=== PATIENT | female | born 1950 | race Caucasian/White ===

== ENCOUNTER 2020-03-17 18:38 | Emergency (ER) | payer MEDICARE, SELFPAY ==
--- NOTE | ~2020-03-17 | CT_ITS ---
EXAMINATION: CT abdomen pelvis w con DATE: 03/17/2020 20:11 INDICATION: Left lower quadrant abdominal pain TECHNIQUE: Computed tomography (CT) of the abdomen and pelvis was performed with 100 mL Omnipaque-350 intravenous contrast. Automated exposure control and iterative reconstruction technique were employe d. The dose-length product was 792.00 mGy-cm. COMPARISON: None FINDINGS: Lung bases are clear. Heart size is normal. No pericardial or pleural effusion. Liver, gallbladder, s pleen, pancreas and bilateral adrenal glands are normal. 2 mm nonobstructing stone at a lower pole ca lyx of the right kidney. There is a likely partially obstructing 3 mm stone at the left ureterovesicu lar junction with mild left hydroureteronephrosis. There is mild urothelial enhancement along the lef t kidney along with small amount of fluid along the anterior left pararenal space and left periureter al stranding which also raises concern for ascending urinary tract infection. There is however normal symmetric enhancement pattern of both kidneys with no suggestion of pyelonephritis. 4 mm low density left renal cyst. There is moderate colonic diverticulosis with a sigmoid predominance. There is no adjacent inflammatory change to suggest diverticulitis. Small bowel and appendix are normal. Bladder , anteverted uterus and bilateral adnexa are normal. No free intraperitoneal gas or fluid. No patholo gically enlarged abdominal or pelvic lymphadenopathy. Bilateral fat-containing inguinal hernias. Mild thoracolumbar spondylosis. IMPRESSION: 1. Bilateral nephrolithiasis with likely partially obstructing 3 mm stone at the left ureterovesicula r junction. Correlate with urinalysis to exclude associated urinary tract infection. 2. Diverticulosis. 3. Bilateral fat-containing inguinal hernias. Reviewed, dictated and finalized at location A. [employer] IMPRESSION: 1. Bilateral nephrolithiasis with likely partially obstructing 3 mm stone at th e left ureterovesicular junction. Correlate with urinalysis to exclude associat ed urinary tract infection. 2. Diverticulosis. 3. Bilateral fat-containing inguinal hernias.
[2020-03-17 18:51] VITALS: BP 136/66; PULSE 65; RESP 18; TEMP 35.8; O2SAT 98
[2020-03-17] MEDS: MORPHINE SULFATE (*CRX) 4 MG/ML INJ IV PUSH (19:25)
[2020-03-17] MEDS: ONDANSETRON INJ 4 MG/2 ML VIAL IV PUSH (19:25)
[2020-03-17] MEDS: SODIUM CHLORIDE 0.9% IV 1,000 ML 150 ML IV CONT (19:27)
[2020-03-17 19:34] LABS: Basophils Percent Auto 0.3 % (0.2-1.2); Eosinophils Absolute Auto 0.1 K/mm3 (0-0.3); Eosinophils Percent Auto 0.8 % (0-4.4); Hematocrit 41.6 % (37.0-47.0); Hemoglobin 14.3 g/dL (12.0-15.0); Immature Granulocyte Absolute 0.06 K/mm3 (0.00-0.031); Immature Granulocyte Percent A 0.7 % (0-0.5); Lymphocytes Absolute Auto 1.35 K/mm3 (0.9-3.2); Lymphocytes Percent Auto 14.8 % (18.3-44.2); Mean Corpuscular HGB Conc 34.4 g/dl (32-36); Mean Corpuscular Hemoglobin 30.4 pg (26-34); Mean Corpuscular Volume 88.5 fl (80-100); Mean Platelet Volume 8.8 fl (7.4-10.4); Monocytes Absolute Auto 0.5 K/mm3 (0.1-0.6); Monocytes Percent Auto 4.9 % (2.6-8.5); Neutrophils Absolute Auto 7.2 K/mm3 (1.3-6.7); Neutrophils Percent Auto 78.5 % (45.5-73.1); Platelet Count Result 198 k/mm3 (150-375); Red Cell Distribution Width 12.2 % (11.5-14.5); White Blood Count 9.1 K/mm3 (4.5-10.0)
[2020-03-17 19:47] LABS: Alanine Aminotransferase 21 U/L (4-35); Albumin Level 4.4 g/dL (3.5-5.1); Alkaline Phosphatase 91 U/L (38-126); Anion Gap 9 mmol/L (8-16); Aspartate Amino Transferase 26 U/L (14-36); Bilirubin,Total 0.8 mg/dL (0.2-1.3); Blood Urea Nitrogen 31 mg/dL (7-17); Calcium 9.4 mg/dL (8.4-10.2); Carbon Dioxide 29 mmol/L (22-30); Chloride 100 mmol/L (98-107); Estimated CRCL calculation 61 ml/min; Estimated Glomerular Filt Rate > 60; Glucose 142 mg/dL (65-105); Lipase 91 U/L (23-300); Potassium 3.9 mmol/L (3.4-5.0); Sodium 138 mmol/L (137-145)
[2020-03-17 20:18] LABS: Add Urine Microscopic? YES; Amorphous Sediment Urine Few; Appearance Urine Cloudy (Clear); Bacteria Urine Trace /hpf; Bilirubin Urine Negative (Negative); Blood Urine Negative (Negative); Color Urine Yellow (Yellow); Glucose Urine UA Negative (Negative); Ketones Urine Negative (Negative); Leukocyte Esterase Ur Negative LEU/UL (Negative); Mucus Urine Rare /lpf; Nitrate Urine Negative (Negative); Protein Urine Negative (Negative); Specific Grav Ur 1.014 (1.001-1.035); Squamous Epithelial Cell Urine Rare /hpf (Few); Urobilinogen Urine Negative mg/dL (<2.0); WBC Urine 0-3 /hpf
--- NOTE | 2020-03-17 20:42 | ED.ABDPAIN ---
HPI - Abdominal Pain General Chief Complaint: Abdominal Pain Stated Complaint: left abd pain/ vomting/dizzy Time Seen by Provider: 03/17/20 19:00 Source: patient and family Mode of arrival: ambulatory Limitations: no limitations History of Present Illness HPI narrative: 69-year-old with a remote history of kidney stones here with complaints of left lower abdominal pain started this afternoon. Patient states that the pain radiates from the left lower abdomen to her flank area. Pain is sharp shooting in nature. She denies any nausea or vomiting. No history of fever or chills. Denies any blood in the urine or in the stool. MD elicited complaint: abdominal pain Pertinent past history: kidney stones Onset (ago): hour(s) (6) Pain Consistency: constant Location: LLQ Severity: moderate Quality: stabbing Radiation: L flank Migration to: suprapubic Exacerbating factors: nothing Relieving factors: nothing Related Data Allergies Allergy/AdvReac Type Severity Reaction Status Date / Time No Known Allergies Allergy Verified 03/17/20 19:03 Review of Systems Review of Systems: All systems reviewed & are unremarkable except as noted in HPI and below Constitutional: Constitutional: Reports no additional constitutional complaints Eyes: Eyes: Reports no additional eye complaints ENT: Reports system reviewed and no additional complaints, except as documented Cardiovascular: Cardiovascular: Reports no additional cardiovascular complaints Respiratory: Respiratory: Reports no additional respiratory complaints Gastrointestinal: Gastrointestinal: Reports as per HPI Genitourinary: Genitourinary: Reports as per HPI Musculoskeletal: Musculoskeletal: Reports no additional musculoskeletal complaints Neurologic: Reports system reviewed and no additional complaints, except as documented PMFSH Family History Family History Mother Family history of Alzheimer's disease Family history of arthritis Father Hypertension Social History Social History Smoking status: Never smoker Second hand tobacco smoke exposure: No Alcohol intake: current Gender identity (if verbalized by the patient): Female Exam Narrative: Exam Narrative: GENERAL: Well-appearing, well-nourished, and in no acute distress. HEAD: Normocephalic, atraumatic. EYES: PERRLA and EOMI.. NECK: Supple. CHEST: Clear to auscultation. No respiratory distress. HEART: Regular rate and rhythm. No murmur heard. Normal peripheral pulses. ABDOMEN: Soft, Mild tenderness in the LLQ, nondistended, normal active bowel sounds. EXTREMITIES: Normal range of motion. No edema. SKIN: Warm, dry, no rash. NEURO: No focal deficits. Alert and oriented x3. PSYCH: Normal mood and affect. Course Course Emergency Course: Patient states the pain has much improved still has very minimal amount of pain I informed her about her lab work, CT findings will give her IV Toradol to make her feel comfortable. Advised to drink plenty of fluids take pain medication as prescribed. Vital Signs Vital signs: Vital Signs Temperature 35.8 C L 03/17/20 18:51 Pulse Rate 65 03/17/20 18:51 Respiratory Rate 18 03/17/20 18:51 Blood Pressure 136/66 03/17/20 18:51 Pulse Oximetry 98 03/17/20 18:51 Temperature 35.8 C L 03/17/20 18:51 Pulse Rate 65 03/17/20 18:51 Respiratory Rate 18 03/17/20 18:51 Blood Pressure 136/66 03/17/20 18:51 Pulse Oximetry 98 03/17/20 18:51 MDM - Abdominal Pain Lab Data Result diagrams: 03/17/20 19:24 03/17/20 19:24 Labs: Lab Results 03/17/20 03/17/20 03/17/20 Range/Units 19:24 19:24 19:24 WBC 9.1 (4.5-10.0) K/mm3 RBC 4.70 (4.2-5.4) M/mm3 Hgb 14.3 (12.0-15.0) g/dL Hct 41.6 (37.0-47.0) % MCV 88.5 (80-100) fl MCH 30.4 (26-34) pg MCHC 34.4 (32-36) g/dl RDW 12.2 (11.5
[2020-03-17] MEDS: KETOROLAC 30 MG/ML VIAL (*BKC) (20:45)
== END 2020-03-17 21:17 | disposition home or self-care (01) ==
PROVIDERS: Emergency Provider Family Medicine; PCP Family Medicine
DX: N20.2 Calculus of kidney with calculus of ureter (principal); K40.90 Unilateral inguinal hernia, without obstruction or gangrene, not specified as recurrent; K57.90 Diverticulosis of intestine, part unspecified, without perforation or abscess without bleeding
CPT/HCPCS: 36415; 74177; 80053; 81001; 83605; 83690; 85025; 96374; 96375; 99284; J1885; J2270; J2405; J7030; Q9967

== ENCOUNTER → 2022-04-18 14:55 | Outpatient (CLI) | payer MEDICARE, SELFPAY ==
--- NOTE | ~2022-04-18 | XR_ITS ---
EXAM: XR knee LT min 4V DATE: 04/18/2022 15:19 HISTORY: Bilateral primary osteoarthritis of knee . COMPARISON: None available. FINDINGS: Normal mineralization. No fracture or dislocation. No lytic or blastic lesion. Mild medial joint space narrowing. Mild tricompartmental osteophytosis. No erosion or periosteal change. Soft ti ssues within normal limits. IMPRESSION: Mild left knee osteoarthritis. Reviewed, dictated and finalized at location K. OTIC/PROSTHETIC PRACTITIONER
== END ==
PROVIDERS: PCP Family Medicine; Visit Provider Orthopaedic Surgery
DX: M17.0 Bilateral primary osteoarthritis of knee (principal)
CPT/HCPCS: 73564

== ENCOUNTER → 2022-06-07 09:07 | Outpatient (CLI) | payer MEDICARE, SELFPAY ==
--- NOTE | ~2022-06-07 | MR_ITS ---
MRI of the left knee Clinical history: Pain Technique: Coronal proton density and proton density-weighted images, sagittal proton-density and T2 fat-sat images, and axial proton-density fat-saturated images were acquired. COMPARISON: 06/27/2018 Findings: Anterior and posterior cruciate ligaments are intact. Medial collateral ligament and the la teral collateral ligament complex are intact. Popliteus tendon is intact. There is probable subtle vertical tear of the body segment of the medial meniscus. Questionable super imposed horizontal tear. No lateral meniscal tear seen. There is mild chondral thinning of the lateral compartment. Medial compartment articular cartilage is well preserved. Femoral trochlear cartilage is intact. There is focal high-grade chondromalacia at t he patellar apex. Extensor mechanism is intact. Small joint effusion present with minimal Conte's cyst. Impression: Subtle vertical tear of the body segment of the medial meniscus with questionable superimposed horizo ntal tear. Mild chondromalacia changes, as detailed above. Small joint effusion and minimal Conte's cyst. Reviewed, dictated and finalized at location M. TIC MAKER Impression: Subtle vertical tear of the body segment of the medial meniscus with questionab le superimposed horizontal tear. Mild chondromalacia changes, as detailed above. Small joint effusion and minimal Conte's cyst.
== END ==
PROVIDERS: PCP Family Medicine; Visit Provider Physician Assistant Surgical
DX: M25.462 Effusion, left knee (principal); M71.22 Synovial cyst of popliteal space [Baker], left knee; S83.242A Other tear of medial meniscus, current injury, left knee, initial encounter; X58.XXXA Exposure to other specified factors, initial encounter
CPT/HCPCS: 73721

== ENCOUNTER 2022-07-09 00:28 | Day surgery (SDC) | payer MEDICARE, SELFPAY ==
[2022-07-02 15:47] VITALS: BMI 31.0
--- NOTE | 2022-07-02 16:00 | PC.NURSE ---
Report to the Outpatient Waiting Room, entrance under the green pavilion located off [facility], at time __1:00PM on date __07/09/22 . Planned Procedure Time: _3:00PM . Time changes happen often and if your time is changed the preop area will call you the afternoon before. - You and your visitor will be asked to self-screen and do not enter if you have any COVID symptoms. - Only one visitor is requested with a max of two and NO children visitors are allowed at this time. - The patient visitor may be requested to leave or wait in car when not with patient due to distancing restrictions. - A mask is optional within the hospital at this time. Patients may have clear liquids (water, carbonated beverages, clear teas, apple juice) until 3 hours prior to surgery with a maximum of 20 ounces. - No food from midnight until time of surgery Take the following medications with a SIP of water the morning of surgery: ___FLOXETINE DO NOT STOP ANY OF YOUR OTHER PRESCRIPTION MEDICATIONS PRIOR TO SURGERY ?EXCEPT THE FOLLOWING Medications to discontinue per physician ____HOLD ALL NSAIDS(IBUPROFEN) 7 DAYS PRE-OP- LAST DOSE 07/02/22, HOLD ALL VITAMINS/SUPPLEMENTS 3 DAYS PRE-OP- LAST DOSE 07/05/22 Please no make-up, nail scottish, hairspray, perfume, deodorant, or body powder the day of surgery. No jewelry (including any body piercings) or valuables the day of surgery, leave them at home. Please take a shower or bath the night before, or the morning of, surgery with an antibacterial soap. Wear comfortable, loose fitting clothing. Children are encouraged to wear pajamas. - Jewelry must be removed prior to entering the operating room. Rings and piercings that are not removed may be cut off. - The hospital will not accept responsibility for valuables. - Please leave all valuables, including medications, at home the day of surgery. If you are going home after surgery, a licensed concrete truck driver must drive you home. - NO public transportation without another adult if you receive anesthesia. - We recommend that an adult stay with you for 24 hours following discharge. - We also recommend that you do not drive, make important decision, drink alcoholic beverages, or take any drugs that were not prescribed by your health care provider for at least 24 hours after your discharge time. Follow any additional instructions given to you from your surgeon. If you or anyone in your household have experienced Covid symptoms in the past week, please notify your surgeon or the nurse liaison at the phone number below for possible testing. Telephone instructions given to ___PATIENT and asked if any additional questions and then verbalized understanding. Patient advised to call surgeon office or pre surgery nurse liaison [phone] if any additional questions.
--- NOTE | 2022-07-09 09:07 | WPDANESEPPF ---
Anes - Initial Pre Proc Eval Procedure: Operation Date: 07/09/22 15:00 Proposed Procedures p Left Knee Arthroscopic Partial Medial Meniscectomy - Reji Khalil MD <Brett Angel DO - Last Filed: 07/23/22 08:26> Date/Time: 07/09/22 09:07 <Brett Angel DO - Last Filed: 07/23/22 08:26> Surgeon: Reji Khalil MD <Brett Angel, DO - Last Filed: 07/23/22 08:26> Pre Op Diagnosis: left medial meniscus tear <Brett Angel DO - Last Filed: 07/23/22 08:26> Patient Data Age: 72 Gender: F Height: 1.63 m Weight: 82 kg <Brett Angel DO - Last Filed: 07/23/22 08:26> Allergies Allergy/AdvReac Type Severity Reaction Status Date / Time No Known Allergies Allergy Verified 07/09/22 13:25 <Brett Angel DO - Last Filed: 07/23/22 08:26> Home Medications Medication Instructions Recorded Confirmed Type pantoprazole 40 mg tablet,delayed 40 mg PO DAILY PRN acid reflux #90 02/27/22 07/09/22 Rx release tabs cholecalciferol (vitamin D3) 125 125 mcg PO DAILY 07/02/22 07/09/22 History mcg (5,000 unit) capsule fluoxetine 10 mg capsule 10 mg PO QAM 07/02/22 07/09/22 History ibuprofen 200 mg capsule 600 mg PO Q6H PRN Pain 07/02/22 07/09/22 History xhfmjameywyf-Oa-vpfu-minerals 2 tablet PO DAILY 07/02/22 07/09/22 History aspirin 81 mg tablet,delayed 81 mg PO BID 14 days #28 tabs 07/09/22 Rx release hydrocodone 5 mg-acetaminophen 325 1 - 2 tablet PO Q4-6H PRN pain #30 07/09/22 Rx mg tablet tabs <Brett Angel DO - Last Filed: 07/23/22 08:26> Patient hx anesthesia problems: none <Jonathan Prince MD - Last Filed: 07/09/22 13:45> Family hx anesthesia problems: none <Jonathan Prince MD - Last Filed: 07/09/22 13:45> Results Review: All pre-operative results and documents have been reviewed as part of the pre-operative evaluation. <Brett Angel DO - Last Filed: 07/23/22 08:26> [facility] Past Medical History Medical History: Medical History (Updated 07/09/22 @ 14:31 by TEODORO Berrios) Anxiety Depression GERD (gastroesophageal reflux disease) Kidney stone Obesity (BMI 30.0-34.9) <Brett Angel DO - Last Filed: 07/23/22 08:26> Surgical History Surgical History: Surgical History (Updated 07/18/22 @ 15:58 by Gabby Price MA) History of History of left knee surgery (~07/09/22) Arthroscopic partial medial meniscectomy, left knee. <Brett Angel DO - Last Filed: 07/23/22 08:26> Family History Family History: Family History Mother Family history of Alzheimer's disease Family history of arthritis Father Hypertension <Brett Angel DO - Last Filed: 07/23/22 08:26> Social History Social History: Social History Social History: Caffeine-occasionally Smoking status: Never smoker Second hand tobacco smoke exposure: No Alcohol intake: current Alcohol use details: occasionally Substance use: never Lack of Transportation: No Lack of Food: Never True Current Housing: I Have Housing Concerned About Future Housing: No Difficulty Paying Gas/Electric Bills: No Difficulty Paying for Meds: No Currently Unemployed: No Education: Master's Degree or Higher Difficulty w/ Childcare or Family Care: No Living arrangements: with family Additional living arrangements comments: HUSB Gender identity (if verbalized by the patient): Female Spiritual care concerns: No <Brett Angel DO - Last Filed: 07/23/22 08:26> Anes - Eval Final PreProcedure Day of Procedure 07/09/22 09:07 <Brett Angel DO - Last Filed: 07/23/22 08:26> Patient weight: obese <Brett Angel DO - Last Filed: 07/23/22 08:26> Heart: regular rate and
[2022-07-09] MEDS: ACETAMINOPHEN 500 MG TABLET 1000 MG PO (13:44)
[2022-07-09] MEDS: LACTATED RINGERS 1,000 ML 30 ML IV CONT ×2 (14:00→15:57)
[2022-07-09 14:03] VITALS: BP 148/71; PULSE 72; RESP 16; TEMP 36.9; O2SAT 98
--- NOTE | 2022-07-09 14:29 | WPDHPUPDATE1 ---
History and Physical Update Update Date/Time: 07/09/22 14:29 History and Physical has been reviewed, including an updated exam of the patient. There are NO changes in the patient's condition. Risks, benefits, and alternatives have been discussed and questions answered. Patient agrees to proceed with procedure.
[2022-07-09] MEDS: KETOROLAC 15 MG/ML VIAL (*BKC) IV PUSH (14:44)
[2022-07-09] MEDS: ceFAZolin 2 GM/D5W 50 ML 2 GM/50 ML BAG IVPB (14:50)
[2022-07-09] MEDS: BUPIVACAINE/EPINEPHRINE 0.25% 50 ML VIAL 30 ML INFILTRATE (15:09)
[2022-07-09 15:39] VITALS: BP 144/73; PULSE 74; RESP 18; TEMP 36.6; O2SAT 99
[2022-07-09 15:54] VITALS: BP 119/52; PULSE 87; RESP 15; O2SAT 100
--- NOTE | 2022-07-09 16:00 | P.OP_ITS ---
Procedure Note - Detailed Date of Procedure 07/09/22 Pre-op Diagnosis Left knee medial meniscus tear Post-op Diagnosis Same Procedure Performed Arthroscopic partial medial meniscectomy, left knee. Surgeon Reji Khalil MD Anesthesia General Findings Significant complex radial split tear with horizontal cleavage component posteriorly at the medial meniscus. Findings consistent with the MRI. Grade 2 chondromalacia on the medial femur and a small area of grade 3/4 chondromalacia on the weight-bearing lateral tibia. Patella grade 2 and trochlea grade 1. Description of Procedure The patient was identified and the surgical site confirmed and signed in the preoperative holding area. Antibiotics were started per protocol. She was brought to the operative room and transferred to the OR table. A general anesthetic was administered. Supine position with the operative lower extremity position in the leg wyatt after placement of a well padded tourniquet. The leg support was lowered and the contralateral limb was supported with a soft bolster. The knee was prepped and draped in the usual sterile fashion. A time- out was performed. The portal sites were marked and infiltrated with 0.5% Marcaine 20 mL. The limb was exsanguinated and the tourniquet inflated to 300 mL Hg. Standard inferolateral and inferomedial portals were established. Inflow was obtained with the saline pump. The camera was introduced. Diagnostic inspection of the joint was accomplished. The meniscus was debrided with the arthroscopic shaver and punches until stable. The radiofrequency probe was also used for further d?bridement. The arthroscopic instruments were removed. The tourniquet released and wounds closed with subcutaneous 4-0 Monocryl absorbable suture. Steri strips and a sterile dressing were applied. A light elastic wrap was placed. The patient was extubated and brought to the recovery room in stable condition. Estimated Blood Loss 5 Tourniquet Time 20 Drains No Complications No immediate complications Condition Stable Disposition PACU [facility] Billing Surgery - Charge Forward: Surgery Billing
[2022-07-09 16:08] VITALS: BP 117/66; PULSE 93; RESP 14; O2SAT 98
[2022-07-09 16:20] VITALS: BP 159/60; PULSE 91
[2022-07-09 16:45] VITALS: BP 155/61; PULSE 70
== END 2022-07-09 17:00 | disposition home or self-care (01) ==
PROVIDERS: PCP Family Medicine; Visit Provider Orthopaedic Surgery
PROC: (CPT 29870; principal; 2022-07-09 15:00)
DX: M23.332 Other meniscus derangements, other medial meniscus, left knee (principal); M94.262 Chondromalacia, left knee; K21.9 Gastro-esophageal reflux disease without esophagitis; F41.9 Anxiety disorder, unspecified; F32.A Depression, unspecified; E66.9 Obesity, unspecified; Z68.34 Body mass index [BMI] 34.0-34.9, adult
CPT/HCPCS: 29881; A9270; J0690; J1100; J1885; J2250; J2405; J2704; J3010; J7120

== ENCOUNTER → 2022-11-29 11:30 | Outpatient (CLI) | payer MEDICARE, SELFPAY ==
--- NOTE | ~2022-11-29 | MR_ITS ---
EXAMINATION: MR knee LT wo con DATE: 11/29/2022 12:16 INDICATION: Left knee pain. TECHNIQUE: Magnetic resonance imaging (MRI) of the left knee was performed without intravenous contra st. Sequences included axial PD-weighted FS FSE, coronal PD-weighted FSE and PD-weighted FS FSE, sagi ttal PD-weighted FSE, and sagittal T2-weighted FS FSE. COMPARISON: Left knee MRI 06/07/2022, radiographs 04/18/2022 FINDINGS: Medial compartment: There is a complex tear of body and posterior horn of medial meniscus. There is shallow partial-thick ness cartilage loss of tibial condyle and femoral condyle. There is deep partial thickness cartilage loss of tibial condyle involving the central articular surface. Osteophytes are noted. Lateral compartment: Lateral meniscus is discoid. There is cartilage surface irregularity of tibial condyle and femoral co ndyle. Patellofemoral compartment: There is deep partial thickness cartilage loss of patellar medial facet with cortical irregularity an d mild subchondral edema-like marrow signal intensity. There is shallow partial-thickness cartilage l oss of trochlea. Ligaments and tendons: The anterior and posterior cruciate ligaments are normal. There is a sprain of medial collateral liga ment characterized increased signal intensity and surrounding edema. Lateral collateral ligament comp enzo is normal. There is mild patellar tendinopathy. Fluid: There is a small knee joint effusion. There is a moderate-sized Conte's cyst. There is mild prepatell ar and superficial infrapatellar bursitis. IMPRESSION: 1. Moderate chondrosis of medial and patellofemoral compartments and mild chondrosis of lateral tim rtment. 2. Tear of medial meniscus. 3. Grade 2 sprain of medial collateral ligament. 4. Small knee joint effusion. 5. Moderate-sized Conte's cyst. Reviewed, dictated and finalized at location A. IMPRESSION: 1. Moderate chondrosis of medial and patellofemoral compartments and mild chond rosis of lateral compartment. 2. Tear of medial meniscus. 3. Grade 2 sprain of medial collateral ligament. 4. Small knee joint effusion. 5. Moderate-sized Conte's cyst.
== END ==
PROVIDERS: PCP Family Medicine; Visit Provider Nurse Practitioner Family
DX: M71.22 Synovial cyst of popliteal space [Baker], left knee (principal); S83.242A Other tear of medial meniscus, current injury, left knee, initial encounter; M25.462 Effusion, left knee
CPT/HCPCS: 73721

== ENCOUNTER 2023-01-25 11:21 | Outpatient (CLI) | payer MEDICARE, SELFPAY ==
[2023-01-25 19:41] LABS: Basophils Absolute Auto 0.1 K/mm3 (0.0-0.1); Basophils Percent Auto 0.9 % (0.2-1.2); Eosinophils Absolute Auto 0.1 K/mm3 (0-0.3); Eosinophils Percent Auto 1.9 % (0-4.4); Hematocrit 42.3 % (37.0-47.0); Hemoglobin 14.1 g/dL (12.0-15.0); Immature Granulocyte Absolute 0.04 K/mm3 (0.00-0.031); Immature Granulocyte Percent A 0.7 % (0-0.5); Lymphocytes Absolute Auto 1.89 K/mm3 (0.9-3.2); Mean Corpuscular HGB Conc 33.3 g/dl (32-36); Mean Corpuscular Hemoglobin 30.9 pg (26-34); Mean Corpuscular Volume 92.6 fl (80-100); Mean Platelet Volume 9.1 fl (7.4-10.4); Monocytes Absolute Auto 0.4 K/mm3 (0.1-0.6); Monocytes Percent Auto 6.8 % (2.6-8.5); Neutrophils Absolute Auto 3.3 K/mm3 (1.3-6.7); Neutrophils Percent Auto 56.7 % (45.5-73.1); Platelet Count Result 206 k/mm3 (150-375); Red Blood Count 4.57 M/mm3 (4.2-5.4); Red Cell Distribution Width 12.2 % (11.5-14.5); White Blood Count 5.7 K/mm3 (4.5-10.0)
[2023-01-25 20:01] LABS: Anion Gap 4 mmol/L (8-16); Blood Urea Nitrogen 17 mg/dL (7-17); Calcium 8.7 mg/dL (8.4-10.2); Carbon Dioxide 32 mmol/L (22-30); Chloride 101 mmol/L (98-107); Cholesterol 225 mg/dL (0-200); Estimated Glomerular Filt Rate > 60; Glucose 226 mg/dL (65-110); HDL Direct 47 mg/dL; Potassium 4.2 mmol/L (3.4-5.0); Sodium 137 mmol/L (137-145); Triglycerides 142 mg/dL (<150)
[2023-01-25 20:18] LABS: LDL Cholesterol Direct 139 mg/dL
[2023-01-25 20:32] LABS: Hemoglobin A1C 7.5 % (<5.7)
[2023-01-25 20:39] LABS: Vitamin D 25 Hydroxy > 126.0 ng/mL
[2023-01-25 21:00] LABS: Hepatitis C Virus Antibody Negative (Negative)
== END 2023-01-25 11:22 | disposition home or self-care (01) ==
PROVIDERS: PCP Family Medicine; Visit Provider Nurse Practitioner Family
DX: E55.9 Vitamin D deficiency, unspecified (principal); E66.9 Obesity, unspecified; M17.0 Bilateral primary osteoarthritis of knee; R73.01 Impaired fasting glucose
CPT/HCPCS: 36415; 80048; 80061; 82306; 83036; 84443; 85025; 86803

== ENCOUNTER 2023-04-24 13:09 | Outpatient (CLI) | payer MEDICARE, SELFPAY ==
[2023-04-24 19:27] LABS: Cholesterol 133 mg/dL (0-200); HDL Direct 41 mg/dL; Triglycerides 117 mg/dL (<150)
[2023-04-24 19:38] LABS: LDL Cholesterol Direct 68 mg/dL
[2023-04-24 19:52] LABS: Hemoglobin A1C 7.7 % (<5.7)
== END 2023-04-24 13:10 | disposition home or self-care (01) ==
LOC: ANHGOSHLAB 13:12
PROVIDERS: PCP Family Medicine; Visit Provider Nurse Practitioner Family
DX: E78.5 Hyperlipidemia, unspecified (principal); E11.9 Type 2 diabetes mellitus without complications
CPT/HCPCS: 36415; 80061; 83036

== ENCOUNTER 2023-08-20 13:13 | Outpatient (CLI) | payer MEDICARE, SELFPAY ==
[2023-08-20 19:46] LABS: Creatinine Urine 173.5 mg/dL
[2023-08-20 19:51] LABS: MALB Creatinine Ratio 6.7 mg/g (0-30); Microalbumin Urine Random 11.7 mg/L (0-16.7)
[2023-08-20 20:04] LABS: Alanine Aminotransferase 25 U/L (6-35); Albumin Level 4.4 g/dL (3.5-5.1); Alkaline Phosphatase 99 U/L (38-126); Anion Gap 7 mmol/L (4-12); Aspartate Amino Transferase 42 U/L (14-36); Blood Urea Nitrogen 19 mg/dL (7-17); Calcium 9.1 mg/dL (8.4-10.2); Carbon Dioxide 28 mmol/L (22-30); Chloride 101 mmol/L (98-107); Estimated Glomerular Filt Rate > 60; Glucose 122 mg/dL (65-110); Potassium 3.7 mmol/L (3.4-5.0); Sodium 136 mmol/L (137-145)
== END 2023-08-20 13:14 | disposition home or self-care (01) ==
PROVIDERS: PCP Family Medicine; Visit Provider Nurse Practitioner Family
DX: E11.69 Type 2 diabetes mellitus with other specified complication (principal); E66.9 Obesity, unspecified
CPT/HCPCS: 36415; 80053; 82043; 83036

== ENCOUNTER 2024-02-21 13:07 | Outpatient (CLI) | payer MEDICARE, SELFPAY ==
[2024-02-21 15:28] LABS: Creatinine Urine 115.5 mg/dL
[2024-02-21 15:33] LABS: MALB Creatinine Ratio 15.3 mg/g (0-30); Microalbumin Urine Random 17.7 mg/L (0-16.7)
[2024-02-21 15:34] LABS: Alanine Aminotransferase 23 U/L (6-35); Albumin Level 4.2 g/dL (3.5-5.1); Alkaline Phosphatase 86 U/L (38-126); Anion Gap 4 mmol/L (4-12); Aspartate Amino Transferase 37 U/L (14-36); Bilirubin,Total 1.2 mg/dL (0.2-1.3); Blood Urea Nitrogen 29 mg/dL (7-17); Carbon Dioxide 30 mmol/L (22-30); Chloride 103 mmol/L (98-107); Cholesterol 129 mg/dL (0-200); Estimated Glomerular Filt Rate > 60; Glucose 133 mg/dL (65-110); HDL Direct 49 mg/dL; Sodium 137 mmol/L (137-145); Triglycerides 95 mg/dL (<150)
[2024-02-21 15:54] LABS: LDL Cholesterol Direct 54 mg/dL
[2024-02-21 17:26] LABS: Hemoglobin A1C 6.5 % (<5.7)
== END 2024-02-21 13:08 | disposition home or self-care (01) ==
LOC: ANHGOSHLAB 13:08
PROVIDERS: PCP Family Medicine; Visit Provider Family Medicine
DX: E11.9 Type 2 diabetes mellitus without complications (principal)
CPT/HCPCS: 36415; 80053; 80061; 82043; 83036

== ENCOUNTER 2024-04-11 18:25 | Emergency (ER) | payer MEDICARE, SELFPAY ==
--- NOTE | ~2024-04-11 | CT_ITS ---
CT abdomen pelvis w con Ordering provider: Edward Moreira PA-C History: 73 years Female with . RLQ pain . Comparison: None. Technique: CT abdomen and pelvis with IV and without oral contrast. Automated exposure control and it erative reconstruction technique were employed. The dose-length product was 720.60 mGy-cm. 100 mL Omn ipaque 350 was given IV. Findings: VISUALIZED LOWER CHEST: Normal. UPPER ABDOMINAL ORGANS: Liver: Normal. Gallbladder: Normal. Spleen: Normal. Stomach/duodenum: Normal. Pancreas: Normal. Adrenals: Normal. Kidneys: Stone in the right pelviureteric junction is seen measuring 8 mm. Right moderate hydronephro tic changes noted. Tiny cysts in the left kidney midpole. PELVIC ORGANS: The bladder is underfilled with slightly thickened wall. Evaluation for cystitis advis ed. Uterus: Normal. BOWEL AND MESENTERY: Colon: Area of narrowing in the rectosigmoid is seen. This may be spastic but follow-up advised. No e vidence of diverticulitis. Fecal material is loaded in the colon. Normal appendix. Small Bowel: Normal. No obstruction. Peritoneum/mesentery: No free air or free fluid. No mesenteric lymphadenopathy. RETROPERITONEUM: Mild atheromatous disease of the abdominal aorta. No retroperitoneal lymphadenopat hy. MUSCULOSKELETAL: Superficial soft tissues: The superficial soft tissues are normal. Bones: Age appropriate degenerative changes of the spine. IMPRESSION: 1. Stone in the right upper ureter with right hydronephrotic changes. 2. Constipation. 3. Area of narrowing in the rectosigmoid. Follow-up advised. Reviewed, dictated and finalized at location A. CAL ASSISTANT INSTRUCTOR
--- NOTE | ~2024-04-11 | XR_ITS ---
EXAMINATION: XR abdomen/kub 1V DATE: 04/11/2024 22:56 INDICATION: Right ureteral stone TECHNIQUE: A supine view of the abdomen on 2 radiographs was obtained. COMPARISON: CT dated 04/11/2024 at 7:56 PM FINDINGS: There is excreted contrast material in the bilateral renal collecting systems and in the bladder from the earlier contrast-enhanced CT. There is persistent mild right hydronephrosis with focal bulging c ontour at the ureteropelvic junction corresponding to the 1 cm obstructing stone identified on the pr ior CT. No left-sided hydronephrosis. Normal bowel gas pattern with moderate amount of scattered colo kojo stool. IMPRESSION: 1. Unchanged obstructing stone at the right ureteropelvic junction with mild right hydronephrosis. Reviewed, dictated and finalized at location A. AS CUTTER MACHINE IMPRESSION: 1. Unchanged obstructing stone at the right ureteropelvic junction with mild ri ght hydronephrosis.
[2024-04-11 18:28] VITALS: BP 174/84; PULSE 73; RESP 16; TEMP 36.9; O2SAT 100
--- NOTE | 2024-04-11 18:49 | ED.ABDPAIN ---
HPI - Abdominal Pain General Chief Complaint: Abdominal Pain Stated Complaint: ABD PAIN Time Seen by Provider: 04/11/24 18:34 Source: patient Mode of arrival: ambulatory Limitations: no limitations History of Present Illness HPI narrative: This is a 73-year-old female who presents to the ED via EMS for chief complaint of abdominal pain that started around 1700. Patient states that she started having some sweats and felt nauseous. She tried to eat some chicken at dinner. States that she then started to have intense right lower quadrant abdominal pain. States it radiated from right upper quadrant to right lower. States that the pain backed off a little bit but then came back again so they called EMS. The patient reports that she did have episode of vomiting prior to arrival as well. She received Zofran en route and feels this did help. Denies recent fevers, chills, urinary symptoms, chest pain, shortness of breath, cough. Related Data Home Medications ?Medication ?Instructions ?Recorded ?Confirmed ?Last Taken ?Type cholecalciferol (vitamin D3) 125 125 mcg PO DAILY 07/02/22 05/01/23 07/05/22 History mcg (5,000 unit) capsule gjaeeakepddp-Wn-qiey-minerals 2 tablet PO DAILY 07/02/22 05/01/23 07/05/22 History Allergies Allergy/AdvReac Type Severity Reaction Status Date / Time No Known Allergies Allergy Verified 02/24/24 11:35 Review of Systems Review of Systems: All systems as dictated in HPI FORMERLY [facility], [facility] Past Medical History Medical History Anxiety Depression GERD (gastroesophageal reflux disease) Kidney stone Obesity (BMI 30.0-34.9) Surgical History Surgical History History of History of left knee surgery (~07/09/22) Arthroscopic partial medial meniscectomy, left knee. Family History Family History Mother Family history of Alzheimer's disease Family history of arthritis Father Hypertension Social History Social History Social History: Caffeine-occasionally Smoking status: Never smoker Second hand tobacco smoke exposure: No Alcohol intake: current Alcohol use details: occasionally Substance use: never Substance use type: does not use Do You Feel Safe in your Home?: Yes Lack of Transportation: YES Lack of Food: Never True Current Housing: I Have Housing Concerned About Future Housing: No Difficulty Paying Gas/Electric Bills: No Difficulty Paying for Meds: No Currently Unemployed: No Education: Master's Degree or Higher Difficulty w/ Childcare or Family Care: No Living arrangements: with family Additional living arrangements comments: HUSB Gender identity (if verbalized by the patient): Female Spiritual care concerns: No Exam Narrative: GENERAL: Well-appearing, well-nourished, and in no acute distress. HEAD: Normocephalic, atraumatic. EYES: PERRLA and EOMI. ENT: Nares clear, no rhinorrhea or epistaxis. Mucous membranes moist. Oropharynx without tonsillar hypertrophy exudate or other lesions. NECK: Supple. No adenopathy or masses. CHEST: No respiratory distress. Clear to auscultation. No wheezes rales or rhonchi HEART: Regular rate and rhythm. No murmur heard. Normal peripheral pulses. ABDOMEN: Mild right lower quadrant tenderness. Soft, otherwise nontender, nondistended, normal active bowel sounds. Negative flank tenderness bilaterally. MSK: Normal range of motion. No edema. SKIN: Warm, dry, no rash. NEURO: Alert and oriented x4. No focal deficits. PSYCH: Normal mood and affect. Course Reevaluation(s) Reevaluation #1: Patient is feeling much improved after 1 round of Dilaudid. Updated her that she has an 8 mm stone on the right side. Date: 04/11/24 Time: 21:38 Consultations Consultation #1: Spoke with Dr. Ricketts (Urology): Recommends getting a KUB and is fine with patient being discharged with symptoms under control. They will follow-up with patient on Saturday. Date: 04/11/24 Time: 22:45 Vital Signs Vital signs: Vital Signs Temperature 98.4 F 04/11/24 18:28 Pulse Rate 73 04/11/24 18:28 Respiratory Rate 16 04/11/24 18:28 Blood Pressure 174/84 H 04/11/24 18:28 Pulse Oximetry 100 04/11/24 18:28 Temperature 98.2 F 04/11/24 23:16 Pulse Rate 72 04/11/24 23:16 Respiratory Rate 16 04/11/24 23:16 Blood Pressure 138/86 04/11/24 23:16 Pulse Oximetry 99 04/11/24 23:16 MDM - Abdominal Pain MDM Narrative Medical decision making narrative: This is a 73-year-old female who presents to the ED for chief complaint of right abdominal pain. Vitals are normal. Exam shows right flank tenderness. Lab work is unremarkable. Urinalysis shows evidence of blood but no UTI. CT abdomen pelvis with IV contrast shows right proximal ureteral stone that is about 8 mm with hydronephrosis. The patient is feeling much improved after 1 round of Dilaudid. She is feeling ready to go home. I discussed the case with Urology who was comfortable with her going home. She was given [place] for breakthrough pain. Urine strainer was sent home. Urology was scheduled for lithotripsy. Patient will be discharged in stable condition. Supportive measures discussed and return precautions given. Patient is understanding and agreeable with plan for discharge with Urology follow-up. Lab Data 04/11/24 19:17 04/11/24 19:17 Labs: Lab Results 04/11/24 04/11/24 Range/Units 19:17 21:44 WBC 9.0 (4.5-10.0) K/mm3 RBC 4.84 (4.2-5.4) M/mm3 Hgb 14.6 (12.0-15.0) g/dL Hct 42.9 (37.0-47.0) % MCV 88.6 (80-100) fl MCH 30.2 (26-34) pg MCHC 34.0 (32-36) g/dl RDW 12.6 (11.5-14.5) % Plt Count 201 (150-375) k/mm3 MPV 8.9 (7.4-10.4) fl Immature Gran % (Auto) 0.8 H (0-0.5) % Neut % (Auto) 81.1 H (45.5-73.1) % Lymph % (Auto) 12.8 L (18.3-44.2) % [place] % (Auto) 4.1 (2.6-8.5) % Eos % (Auto) 0.6 (0-4.4) % Baso % (Auto) 0.6 (0.2-1.2) % Lymph # (Auto) 1.16 (0.9-3.2) K/mm3 [place] # (Auto) 0.4 (0.1-0.6) K/mm3 Eos # (Auto) 0.1 (0-0.3) K/mm3 Baso # (Auto) 0.1 (0.0-0.1) K/mm3 Abs Immat Gran (auto) 0.07 H (0.00-0.031) K/mm3 Absolute Neuts (auto) 7.3 H (1.3-6.7) K/mm3 Absolute Nucleated RBC 0.000 (0.0-0.012) K/mm3 Nucleated RBC % 0.0 (0.0-0.2) % Sodium 139 (137-145) mmol/L Potassium 4.2 (3.4-5.0) mmol/L Chloride 106 (98-107) mmol/L Carbon Dioxide 29 (22-30) mmol/L Anion Gap 4 (4-12) mmol/L BUN 22 H (7-17) mg/dL Creatinine 0.80 (0.7-1.0) mg/dL Estim Creat Clear Calc 59 ml/min Estimated GFR > 60 (59 - ) Glucose 143 H (65-110) mg/dL Lactic Acid 1.2 (0.7-2.0) mmol/L Calcium 9.7 (8.4-10.2) mg/dL Total Bilirubin 0.9 (0.2-1.3) mg/dL AST 27 (14-36) U/L ALT 20 (6-35) U/L Alkaline Phosphatase 130 H (38-126) U/L Total Protein 7.0 (6.3-8.2) g/dL Albumin 4.5 (3.5-5.1) g/dL Lipase 141 (23-300) U/L Urine Color Yellow (Yellow) Urine Appearance Clear (Clear) Urine pH 7.0 (5.0-9.0) Ur Specific [place] 1.015 (1.001-1.035) Urine Protein Negative (Negative) mg/dL Urine Glucose (UA) Negative (Negative) mg/dL Urine Ketones Negative (Negative) mg/dL Ur Blood (Man) 2+ H (Negative) Urine Nitrate Negative (Negative) Urine Bilirubin Negative (Negative) Urine Urobilinogen 1.0 (<2.0) mg/dL Leukocyte Esterase Rfl Negative (Negative) GILES/UL Urine RBC 11-20 H (0-2) /hpf Urine WBC 4-6 H (0-3) /hpf Imaging Data Radiologist's impression: ITS Impressions Abdomen/Pelvis CT 04/11/24 20:24 IMPRESSION: 1. Stone in the right upper ureter with right hydronephrotic changes. 2. Constipation. 3. Area of narrowing in the rectosigmoid. Follow-up advised. Discharge Plan Discharge Clinical Impression: Calculus of right ureter Patient Disposition: Home, Self-Care Condition: Stable Instructions: Antibiotic Form Additional Instructions: Your exam today does show ureteral stone on the right side. Please follow-up with urology on this issue. Take Tylenol and ibuprofen every 4-6 hours for pain control. [place] for breakthrough pain. Use Zofran for nausea. Flomax prescribed as well to help urinate this stone. If you have any new or worsening symptoms please return to the ER for further evaluation. Patient Language: Portuguese Prescriptions: New tamsulosin [Flomax] 0.4 mg capsule 0.4 mg PO DAILY Qty: 10 0RF ondansetron 4 mg tablet,disintegrating 4 mg PO Q8H PRN (Reason: nausea and vomiting) Qty: 10 0RF hydrocodone-acetaminophen 5-325 mg tablet 1 tablet PO Q8H PRN (Reason: pain) Qty: 14 0RF No Action Synjardy XR 10-1,000 mg tablet, IR - ER, biphasic 24hr 1 tablet PO QAM Qty: 90 3RF cholecalciferol (vitamin D3) 125 mcg (5,000 unit) Capsule 125 mcg PO DAILY tucgkspyfqgu-Bb-yksq-minerals Tablet 2 tablet PO DAILY pantoprazole 40 mg tablet,delayed release (DR/EC) 40 mg PO DAILY PRN (Reason: acid reflux) Qty: 90 0RF Synjardy 5-500 mg tablet 1 tablet PO BID Qty: 180 1RF Rx Instructions: take with meals fluoxetine 10 mg capsule 10 mg PO QAM Qty: 90 1RF atorvastatin 40 mg tablet See Rx Instructions .ROUTE .COMPLEX Qty: 90 1RF Dose Instruction: 40 MG ORALLY DAILY Rx Instructions: 40 MG ORALLY DAILY Follow-up/Referrals: Joe Rai MD [Primary Care Provider] - Demetrius Ricketts MD [Physician] - Time of Disposition: 22:58
[2024-04-11] MEDS: HYDROmorphone HCL INJ (*CRX) 1 MG/ML SYR 0.5 MG IV PUSH (18:50)
--- NOTE | 2024-04-11 18:51 | PC.NURSE ---
last oral intake : some diet mountain dew, water, and chicken and dumplins around 1700 today
[2024-04-11 19:25] LABS: Basophils Absolute Auto 0.1 K/mm3 (0.0-0.1); Basophils Percent Auto 0.6 % (0.2-1.2); Eosinophils Absolute Auto 0.1 K/mm3 (0-0.3); Eosinophils Percent Auto 0.6 % (0-4.4); Hematocrit 42.9 % (37.0-47.0); Hemoglobin 14.6 g/dL (12.0-15.0); Immature Granulocyte Absolute 0.07 K/mm3 (0.00-0.031); Immature Granulocyte Percent A 0.8 % (0-0.5); Lymphocytes Absolute Auto 1.16 K/mm3 (0.9-3.2); Lymphocytes Percent Auto 12.8 % (18.3-44.2); Mean Corpuscular Hemoglobin 30.2 pg (26-34); Mean Corpuscular Volume 88.6 fl (80-100); Mean Platelet Volume 8.9 fl (7.4-10.4); Monocytes Absolute Auto 0.4 K/mm3 (0.1-0.6); Monocytes Percent Auto 4.1 % (2.6-8.5); Neutrophils Absolute Auto 7.3 K/mm3 (1.3-6.7); Neutrophils Percent Auto 81.1 % (45.5-73.1); Platelet Count Result 201 k/mm3 (150-375); Red Blood Count 4.84 M/mm3 (4.2-5.4); Red Cell Distribution Width 12.6 % (11.5-14.5)
[2024-04-11 19:33] LABS: Lactic Acid Reflex 1.2 mmol/L (0.7-2.0)
[2024-04-11 19:34] LABS: Alanine Aminotransferase 20 U/L (6-35); Albumin Level 4.5 g/dL (3.5-5.1); Alkaline Phosphatase 130 U/L (38-126); Anion Gap 4 mmol/L (4-12); Aspartate Amino Transferase 27 U/L (14-36); Bilirubin,Total 0.9 mg/dL (0.2-1.3); Blood Urea Nitrogen 22 mg/dL (7-17); Calcium 9.7 mg/dL (8.4-10.2); Carbon Dioxide 29 mmol/L (22-30); Chloride 106 mmol/L (98-107); Estimated CRCL calculation 59 ml/min; Estimated Glomerular Filt Rate > 60; Glucose 143 mg/dL (65-110); Lipase 141 U/L (23-300); Potassium 4.2 mmol/L (3.4-5.0); Sodium 139 mmol/L (137-145)
[2024-04-11 19:43] VITALS: BP 147/76; PULSE 65; RESP 13; O2SAT 98
[2024-04-11 22:25] LABS: Bilirubin Urine Negative (Negative); Blood Urine 2+ (Negative); Glucose Urine UA Negative (Negative)
[2024-04-11 22:26] LABS: Add Urine Microscopic? YES; Leukocyte Esterase Ur Negative LEU/UL (Negative)
[2024-04-11 22:27] LABS: Appearance Urine Clear (Clear); Color Urine Yellow (Yellow); Specific Grav Ur 1.015 (1.001-1.035)
[2024-04-11 22:28] LABS: Ketones Urine Negative (Negative); Nitrate Urine Negative (Negative); Protein Urine Negative (Negative)
[2024-04-11] MEDS: KETOROLAC 15 MG/ML VIAL (*BKC) IV PUSH (23:03)
[2024-04-11 23:16] VITALS: BP 138/86; PULSE 72; RESP 16; TEMP 36.8; O2SAT 99
== END 2024-04-11 23:15 | disposition home or self-care (01) ==
PROVIDERS: Emergency Provider Physician Assistant; PCP Family Medicine
DX: N20.1 Calculus of ureter (principal); E66.9 Obesity, unspecified; Z68.33 Body mass index [BMI] 33.0-33.9, adult; K21.9 Gastro-esophageal reflux disease without esophagitis; Z87.442 Personal history of urinary calculi; Z79.84 Long term (current) use of oral hypoglycemic drugs; Z79.899 Other long term (current) drug therapy; K59.00 Constipation, unspecified
CPT/HCPCS: 36415; 74018; 74177; 80053; 81001; 83605; 83690; 85025; 96374; 96375; 99284; J1171; J1885; Q9967

== ENCOUNTER 2024-05-26 16:28 | Outpatient (CLI) | payer MEDICARE, SELFPAY ==
--- NOTE | ~2024-05-26 | CT_ITS ---
CLINICAL INDICATION: Right flank pain COMPARISON: 04/11/2024. TECHNIQUE: Multiple contiguous axial images of the abdomen and pelvis were performed without the admi nistration of intravenous contrast The dose-length product (DLP) was 290.75 mGy-cm. Automated exposure control and iterative reconstruction technique were employed. FINDINGS/OBSERVATIONS: Visualized lower thorax: The bilateral lung bases are clear. The heart is of normal size, without pericardial effusion. Small hiatal hernia is present. Liver: The liver demonstrates homogeneous attenuation and is not enlarged measuring 16 cm in longitudinal di mension. Gallbladder and biliary system: The gallbladder is only minimally distended, and otherwise unremarkable. Pancreas: Limited evaluation of the pancreas secondary to the lack of intravenous contrast. Spleen: The spleen demonstrates homogeneous attenuation and is not enlarged measuring 10 cm in longitudinal d imension. Kidneys: Right-sided hydronephrosis with progression and migration of the bilobed right-sided calculus now at approximately the level of L3. 3.6 mm nonobstructing calculus within the lower pole of the right kidney. The left kidney and left-sided collecting system are unremarkable. Adrenal glands: Unremarkable. Gastrointestinal tract: Colonic diverticulosis without surrounding inflammatory change. Appendix: The air-filled appendix is of normal caliber (axial series, images 88 - 101). Vasculature: Calcified atherosclerotic disease without aneurysmal dilatation. Lymph nodes: Limited evaluation without contrast. Pelvic structures: The bladder is decompressed, and otherwise unremarkable. The uterus is anteverted and anteflexed, and otherwise unremarkable. Body wall and musculoskeletal: No significant degenerative disease within the lumbosacral spine. IMPRESSION: Interval migration of the right-sided ureteral calculus, now at approximately the level of L3 with pe rsistent, mild, right-sided hydronephrosis. Reviewed, dictated and finalized at location A. ASONIC SEAMING MACHINE OPERATOR IMPRESSION: Interval migration of the right-sided ureteral calculus, now at approximately t he level of L3 with persistent, mild, right-sided hydronephrosis.
--- OUTSIDE RECORDS SUMMARY | 2024-05-26 16:32 | XMS_ITS | Referral Summary ---
Author Organization [facility] [address] Address [address] [place] [address] Care Team Providers Care Urgent Care Technician Name Role Phone Joe Rai MD Primary Care Provider [phone] Encounters Date Type Department Care Team Description 03/17/2024 1:45 PM DIRECTOR OF RESTAURANTS Office Visit [facility] [address] [place] [address] Adam Agarwal MD Type 2 diabetes mellitus without complication, without long-term current use of insulin (CMS/HCC) (HCC) (Primary Dx); Yeast infection from Last 3 Months Allergies No known active allergies Medications atorvastatin (LIPITOR) 40 mg tablet Take 1 tablet (40 mg total) by mouth daily 08/05/2023 Active FLUoxetine 10 mg capsule Take 1 tablet/capsul e (10 mg total) by mouth daily 08/06/2023 Active fluconazole (DIFLUCAN) 150 mg tablet Take one tab now. Repeat in 7 days if symptoms persist. 2 tablet 03/17/2024 Active SITagliptin phos-metformin (Janumet XR) 50-500 mg tablet, ER multiphase 24 hr One tablet daily. 90 tablet 1 03/17/2024 Active Active Problems Problem Noted Date Diagnosed Date Yeast infection 03/17/2024 Assessment & Plan (03/17/2024 1:57 PM DIRECTOR OF RESTAURANTS): Rx'ed fluconazole. Remain off Synjardy. Encounter for screening colonoscopy 09/23/2023 Type 2 diabetes mellitus wit hout complication, without long-term current use of insulin ([facility]) 09/23/2023 Assessment & Plan (03/17/2024 4:09 PM DIRECTOR OF RESTAURANTS): A1c is at goal. Will stop Synjardy permanently due to yeast infection. Switch to Janumet XR one pill daily. Recommend yearly eye exams. Assessment & Plan (09/23/2023 6:47 PM CDT): A1c 6% recently, which is now at goal. We discussed medication options including continuing Synjardy, switching to Synjardy XR, or stopping Synjardy and just continuing the Jardiance component. We chose to continue Synjardy as-is, but will just have her take it once per day as this seems sufficient. No need for her to check fingersticks. Counseling provided on healthy lifestyle. Exercise 30 minutes per day 5x weekly. Eat heart healthy (Mediterranean) diet of fruits, vegetables, and whole grains; avoid saturated fats and excess sweets. Refer to nutrition. Recommend yearly dilated eye exams. She appears to have the beginnings of mild neuropathy. We will monitor this. I have asked that she send me her most recent labs from her PCP. Other hyperlipidemia 09/23/2023 Assessment & Plan (09/23/2023 3:09 PM CDT): At goal on current therapy. 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 Immunizations Name Administration Dates Next Due Influenza, Quad, Adjuvantated, Intramuscular 10/2020 Influenza, Quadrivalent, Hig h Dose, Preservative Free, Intrr 01/25/2023,01/23/2022 Influenza, Quadrivalent, Rec ombinant, Egg Free, Preservative Free, Intramuscular 02/04/2020,02/06/2019 Influenza, Quadrivalent, Spl it, Preservative Free, Intramuscular 02/03/2018 Pneumococcal Conjugate PCV 13 02/03/2018 Pneumococcal Polysaccharide PPV23 03/09/2019 RSV Vaccine, Pref, Recombina nt, Subunit, Adjuvanted, PF, IM (Arexvy) 02/07/2023 Tdap 03/21/2021 Social History Tobacco Use Types Packs/Day Years Used Date Smoking Tobacco: Never Tobacco Cessation:Counseling Given: Not Answered Comments Unknown Sex and Gender Information Value Date Recorded Sex Assigned at Not on file Legal Sex Female 8:27 PM DIRECTOR OF RESTAURANTS Gender Identity Not on file Sexual Orientation Not on file Last Filed Vital Signs Vital Sign Reading Time Taken Comments Blood Pressure 145/88 03/17/2024 1:38 PM DIRECTOR OF RESTAURANTS Pulse 85 03/17/2024 1:38 PM DIRECTOR OF RESTAURANTS Temperature - - Respiratory Rate - - Oxygen Saturation - - Inhaled Oxygen Concentration - - Weight 86.1 kg (189 lb 12.8 oz) 03/17/2024 1:38 PM DIRECTOR OF RESTAURANTS Height 162.6 cm (5' 4 ) 03/17/2024 1:38 PM DIRECTOR OF RESTAURANTS Body Mass Index 32.58 03/17/2024 1:38 PM DIRECTOR OF RESTAURANTS Plan of Treatment Scheduled Procedures Name Priority Associated Diagnoses Date/Ti me COLONOSCOPY Open Access Encounter for screening colonoscopy Procedures Procedure Name Priority Date/Time Associated Diagnosis Comments POCT HEMOGLOBIN A1C Routine 03/17/2024 4 :10 PM DIRECTOR OF RESTAURANTS Type 2 diabetes mellitus without complication, without long-term current use of insulin ([facility]/HCC) (HCC) POCT LIPID PANEL Routine 09/23/2023 3:27 PM CDT Type 2 diabetes mellitus without complication, without long-term current use of insulin (CMS/HCC) (HCC) from Last 3 Months or Most Recently Relevant to Health Maintenance Results * POCT hemoglobin A1c (03/17/2024 4:10 PM DIRECTOR OF RESTAURANTS) Hemoglobin A1C, POC 6.7 4.0 - 5.6 % Capillary blood 03/17/2024 4 :10 PM DIRECTOR OF RESTAURANTS Adam Agarwal MD POINT OF CARE TEST JOSE ROBERTSON Final Result * POCT lipid panel (09/23/2023 3:27 PM CDT) Cholesterol, POC 116 mg/dL HDL, POC 42 mg/dL Triglycerides, POC 201 mg/dL LDL Cholesterol POC 33 mg/dL Chol/HDL Ratio, POC 2.7 Non-HDL Cholesterol, POC 73 mg/dL Capillary blood 09/23/2023 3 :27 PM CDT Adam Agarwal MD POINT OF CARE TEST JOSE ROBERTSON Final Result from Last 3 Months or Most Recently Relevant to Health Maintenance Insurance [employer] MEDICARE Care Teams Urgent Care Technician Relationship Specialty Start Date End Date Joe Rai MD [facility] [place] [address] PCP - General Family Medicine 07/22/23
--- OUTSIDE RECORDS SUMMARY | 2024-05-26 16:32 | XMS_ITS | Clinical Summary ---
Author Organization [facility] Address [address] [facility] [place] [address] Care Team Providers Care Bed And Breakfast Innkeeper Name Role Phone Unavailable Primary Care Provider Unavailabl e Encounters Date Type Department Care Team Description 05/12/2024 External Device Data [facility] ABSTRACTION Provider, Abstract 05/06/2024 External Device Data [facility] ABSTRACTION Provider, Abstract 05/06/2024 External Device Data [facility] ABSTRACTION Provider, Abstract 04/30/2024 10:45 AM STARCH FACTORY LABORER Ancillary Procedure [facility] [address] [place] [id number] Nathan Gannon MD Kidney stone 04/14/2024 External Device Data [facility] ABSTRACTION Provider, Abstract 04/13/2024 2:55 PM STARCH FACTORY LABORER Ancillary Procedure [facility] [address] [place] [id number] Nathan Gannon MD Kidney stone from Last 3 Months Social History Tobacco Use Types Packs/Day Years Used Date Smoking Tobacco: Never Assessed Comments Unknown Sex and Gender Information Value Date Recorded Sex Assigned at Not on file Legal Sex Female 2:42 PM STARCH FACTORY LABORER Gender Identity Not on file Sexual Orientation Not on file Plan of Treatment Health Maintenance Due Date Last Done Comments DIABETES ANNUAL FOOT EXAM 06/26/1969 DIABETES ANNUAL RETINAL EXAM 06/26/1969 DIABETES MICROALBUMIN ANNUAL SCREEN 06/26/1969 LDL CHOLESTEROL ANNUAL 06/26/1969 BREAST CANCER SCREENING 1991 COLORECTAL SCREENING 06/26/1996 Colorectal Cancer Screening 06/26/1996 FIT-DNA Q 3 years 06/26/1996 FIT/FOBT Q 1 year 06/26/1996 Flex Sig/CT Colonography Q 5 years 06/26/1996 ZOSTER VACCINE (1 of 2) 06/26/2001 RSV VACCINE (60+ or ) (1 - Risk 60-74 years 1-dose series) 2011 OSTEOPOROSIS SCREENING 06/26/2016 INFLUENZA VACCINE (#1) 2023 , 01/23/2022, 03/21/2021, Additional history exists DIABETES HBA1C Q 6 MONTHS 09/15/2024 03/17/2024 DTAP/TDAP/TD VACCINES (2 - T d or Tdap) 03/21/2031 03/21/2021 PNEUMOCOCCAL VACCINE 65+ YEARS Completed 03/09/2019 , 02/03/2018 Procedures Procedure Name Priority Date/Time Associated Diagnosis Comments XR ABDOMEN 1 VW Routine 04/30/2024 11:17 AM STARCH FACTORY LABORER Kidney stone XR ABDOMEN 1 VW Routine 04/13/2024 3:08 PM STARCH FACTORY LABORER Kidney stone from Last 3 Months Results * XR ABDOMEN 1 VW (04/30/2024 11:17 AM STARCH FACTORY LABORER) Only the most recent of2 resultswithin the time period is included. Anatomical Region Laterality Modality Abdomen Computed Radiogr aphy 04/30/2024 11:1 8 AM STARCH FACTORY LABORER Impressions 04/30/2024 11:23 AM STARCH FACTORY LABORER IMPRESSION: No definite radiographic evidence of nephrolithiasis. Narrative 04/30/2024 11:23 AM STARCH FACTORY LABORER EXAM: XR ABDOMEN 1 VW DATE: 04/30/2024 CLINICAL HISTORY: Right flank and back pain, nephrolithiasis TECHNIQUE: A single supine AP view of the abdomen was submitted for review. Comparison was made to prior abdominal radiographs performed April 13, 2024. FINDINGS: The bowel gas pattern is unremarkable. There is no evidence of bowel loop dilatation. There is no evidence of free air on this single supine exam. No definite renal calculi are identified, though evaluation is limited by overlying bowel gas. The 9 mm calculus previously seen either in the right renal pelvis or proximal right ureter is not definitely visualized on the current study. Tiny phleboliths are again seen in the pelvis. Multilevel degenerative changes are again seen in the visible portion of the spine. Procedure Note Shyanne Smith MD - 04/30/2024 EXAM: XR ABDOMEN 1 VW DATE: 04/30/2024 CLINICAL HISTORY: Right flank and back pain, nephrolithiasis TECHNIQUE: A single supine AP view of the abdomen was submitted for review. Comparison was made to prior abdominal radiographs performed April 13, 2024. FINDINGS: The bowel gas pattern is unremarkable. There is no evidence of bowel loop dilatation. There is no evidence of free air on this single supine exam. No definite renal calculi are identified, though evaluation is limited by overlying bowel gas. The 9 mm calculus previously seen either in the right renal pelvis or proximal right ureter is not definitely visualized on the current study. Tiny phleboliths are again seen in the pelvis. Multilevel degenerative changes are again seen in the visible portion of the spine. IMPRESSION: No definite radiographic evidence of nephrolithiasis. us Nathan Gannon MD DIAGNOSTIC IMAGING ORDERAB LES Final Result from Last 3 Months Insurance AETNA [facility]
--- OUTSIDE RECORDS SUMMARY | 2024-05-26 16:32 | XMS_ITS | Clinical Summary ---
Author Organization [employer] [facility] [address] Address [address] [place] [address] Care Team Providers Care Phlebotomy Supervisor Name Role Phone Joe Rai MD Primary Care Provider +1 [phone] Allergies No known active allergies Medications atorvastatin [...] 03/17/2024 Assessment & Plan (03/17/2024 1:57 PM INDUSTRIAL WELDER): Rx'ed fluconazole. Remain off Synjardy. Encounter for screening colonoscopy 09/23/2023 Type 2 diabetes mellitus wit hout complication, without long-term current use of insulin ([facility]) 09/23/2023 Assessment & Plan (03/17/2024 4:09 PM INDUSTRIAL WELDER): A1c is at goal. Will stop Synjardy [...] on current therapy. 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 Encounters Date Type Department Care Team Description 03/17/2024 1:45 PM INDUSTRIAL WELDER Office Visit [facility] [address] [facility] [address] [place] [address] Adam Agarwal MD Type 2 diabetes mellitus without complication, without long-term current use of insulin ([facility]) ([facility]) (Primary Dx); Yeast infection from Last 3 Months Immunizations Name Administration Dates Next Due Influenza, Quad, Adjuvantated, Intramuscular 10/2020 Influenza, Quadrivalent, Hig h Dose, Preservative Free, Intrr 01/25/2023,01/23/2022 Influenza, Quadrivalent, Rec ombinant, Egg Free, Preservative Free, Intramuscular 02/04/2020,02/06/2019 Influenza, Quadrivalent, Spl it, Preservative Free, Intramuscular 02/03/2018 Pneumococcal Conjugate PCV 13 02/03/2018 Pneumococcal Polysaccharide PPV23 03/09/2019 RSV Vaccine, Pref, Recombina nt, Subunit, Adjuvanted, PF, IM (Arexvy) 02/07/2023 Tdap 03/21/2021 Surgical History Surgery Date Site/Laterality Comments UTERINE FIBROID SURGERY Uterine Surgery - (Added by TW Conv) DILATION AND CURETTAGE OF UTERUS Dilation And Curettage - (Added by SYEDA Conv) Medical History Medical History Date Comments Diabetes mellitus (HCC) Hyperlipidemia Kidney stone Family History Medical History Relation Name Comments Hypertension Father Hypertension - (Added by TW Conv) Relation Name Status Comments Father Social History Tobacco Use Types Packs/Day Years Used Date Smoking Tobacco: Never Tobacco Cessation:Counseling Given: Not Answered Comments Unknown Sex and Gender Information Value Date Recorded Sex Assigned at Not on file Legal Sex Female 8:27 PM INDUSTRIAL WELDER Gender Identity Not on file Sexual Orientation Not on file Obstetrics History Last Filed Vital Signs Vital Sign Reading Time Taken Comments Blood Pressure 145/88 03/17/2024 1:38 PM INDUSTRIAL WELDER Pulse 85 03/17/2024 1:38 PM INDUSTRIAL WELDER Temperature - - Respiratory Rate - - Oxygen Saturation - - Inhaled Oxygen Concentration - - Weight 86.1 kg (189 lb 12.8 oz) 03/17/2024 1:38 PM INDUSTRIAL WELDER Height 162.6 cm (5' 4 ) 03/17/2024 1:38 PM INDUSTRIAL WELDER Body Mass Index 32.58 03/17/2024 1:38 PM INDUSTRIAL WELDER Plan of Treatment Scheduled Procedures Name Priority Associated Diagnoses Date/Ti me COLONOSCOPY Open Access Encounter for screening colonoscopy Health Maintenance Due Date Last Done Comments Albumin Creatinine Ratio, Urine 1951 Breast Cancer Screening-Mammogram 1951 Colon Cancer Screening-Colonoscopy 1950 Depression Screening 1951 Fall Risk Assessment 1950 Hepatitis C Screening 1951 Osteoporosis Screening-Bone Density Scan 1950 eGFR 1951 Dilated Eye Exam 1951 Foot Exam 1951 Hepatitis B Screening 06/26/1969 Zoster Vaccine (1 of 2) 06/26/2001 Well Visit 65+ 06/26/2016 Covid-19 Vaccine ( - 2023-2 5 season) 2023 02/14/2022, 2020, 05/28/2020 Influenza Vaccine (#1) 2023 3, 01/23/2022, 03/21/2021, Additional history exists Hemoglobin A1C 09/15/2024 03/17/2024 Lipid Panel 09/22/2024 09/23/2023 DTaP/Tdap/Td Vaccine (2 - Td or Tdap) 03/21/2031 03/21/2021 Pneumococcal vaccine 65+ Completed 03/09/2019, 01/14 Procedures Procedure Name Priority Date/Time Associated Diagnosis Comments POCT HEMOGLOBIN A1C Routine 03/17/2024 4 :10 PM INDUSTRIAL WELDER Type 2 diabetes mellitus without complication, without long-term current use of insulin ([facility]) ([facility]) POCT LIPID PANEL Routine 09/23/2023 3:27 PM CDT Type 2 diabetes mellitus without complication, without long-term current use of insulin ([facility]) ([facility]) from Last 3 Months or Most Recently Relevant to Health Maintenance Results * POCT hemoglobin A1c (03/17/2024 4:10 PM INDUSTRIAL WELDER) Hemoglobin A1C, POC 6.7 4.0 - 5.6 % Capillary blood 03/17/2024 4 :10 PM INDUSTRIAL WELDER Adam Agarwal MD POINT OF CARE TEST [...] Health Maintenance Insurance AETNA MEDICARE Care Teams Phlebotomy Supervisor Relationship Specialty Start Date End Date Joe Rai MD [address] [place] [address] [address] PCP - General Family Medicine 07/22/23
== END 2024-05-26 16:29 | disposition home or self-care (01) ==
PROVIDERS: PCP Family Medicine; Visit Provider Urology
DX: N13.2 Hydronephrosis with renal and ureteral calculous obstruction (principal)
CPT/HCPCS: 74176

== ENCOUNTER 2024-05-29 02:49 | Emergency (ER) | payer MEDICARE, SELFPAY ==
--- NOTE | ~2024-05-29 | CT_ITS ---
EXAMINATION: CT abdomen pelvis wo con DATE: 05/29/2024 05:39 INDICATION: Kidney stone. TECHNIQUE: Computed tomography (CT) of the abdomen and pelvis was performed without intravenous contr ast. Automated exposure control and iterative reconstruction technique were employed. The dose-length product was 343.82 mGy-cm. COMPARISON: CT abdomen and pelvis 05/26/2024 FINDINGS: The visualized portions of the lung bases demonstrate mild atelectasis. No pleural effusion . The heart size is normal. No pericardial effusion. The liver, gallbladder, spleen, pancreas, adrena l glands, and left kidney are normal. There is a 3 mm stone in right kidney. There is mild right hydr onephrosis and hydroureter. There is a 4 mm stone in distal right ureter. There is a 5 mm stone at ri ght ureterovesicular junction. There are bilateral inguinal hernias containing fat. There is divertic ulosis of the colon without evidence of diverticulitis. There are no dilated loops of bowel. The appe ndix is normal. There is a small sliding hiatal hernia. There are no pathologically enlarged lymph no yudy. There is no free intraperitoneal fluid. There is mild thoracic and lumbar spondylosis. IMPRESSION: 1. 4 mm stone in distal right ureter and 5 mm stone at right ureterovesicular junction with mild righ t hydronephrosis and hydroureter. 2. 3 mm nonobstructing right kidney stone. Reviewed, dictated and finalized at location A. EST CREW SUPERVISOR IMPRESSION: 1. 4 mm stone in distal right ureter and 5 mm stone at right ureterovesicular j unction with mild right hydronephrosis and hydroureter. 2. 3 mm nonobstructing right kidney stone.
[2024-05-29 02:51] VITALS: BP 149/80; PULSE 63; RESP 19; TEMP 36.5; O2SAT 100
--- OUTSIDE RECORDS SUMMARY | 2024-05-29 02:52 | XMS_ITS | Referral Summary ---
Author Organization [facility] [address] Address [address] [place] [address] Care Team Providers Care Sanitary Plumber Name Role Phone Joe Rai MD Primary Care Provider [phone] [phone] Encounters Date Type Department Care Team Description 03/17/2024 1:45 PM CORRESPONDENCE SPECIALIST Office Visit [facility] [address] [facility] [address] [place] [address] Adam Agarwal MD Type 2 [...] 03/17/2024 Assessment & Plan (03/17/2024 1:57 PM CORRESPONDENCE SPECIALIST): Rx'ed fluconazole. Remain off Synjardy. Encounter for screening colonoscopy 09/23/2023 Type 2 diabetes mellitus wit hout complication, without long-term current use of insulin ([facility]) 09/23/2023 Assessment & Plan (03/17/2024 4:09 PM CORRESPONDENCE SPECIALIST): A1c is at goal. Will stop Synjardy [...] on file Legal Sex Female 8:27 PM CORRESPONDENCE SPECIALIST Gender Identity Not on file Sexual Orientation Not on file Last Filed Vital Signs Vital Sign Reading Time Taken Comments Blood Pressure 145/88 03/17/2024 1:38 PM CORRESPONDENCE SPECIALIST Pulse 85 03/17/2024 1:38 PM CORRESPONDENCE SPECIALIST Temperature - - Respiratory Rate - - Oxygen Saturation - - Inhaled Oxygen Concentration - - Weight 86.1 kg (189 lb 12.8 oz) 03/17/2024 1:38 PM CORRESPONDENCE SPECIALIST Height 162.6 cm (5' 4 ) 03/17/2024 1:38 PM CORRESPONDENCE SPECIALIST Body Mass Index 32.58 03/17/2024 1:38 PM CORRESPONDENCE SPECIALIST Plan of Treatment Scheduled Procedures Name Priority Associated Diagnoses Date/Ti me COLONOSCOPY Open Access Encounter for screening colonoscopy Procedures Procedure Name Priority Date/Time Associated Diagnosis Comments POCT HEMOGLOBIN A1C Routine 03/17/2024 4 :10 PM CORRESPONDENCE SPECIALIST Type 2 diabetes mellitus without complication, without long-term current use of insulin ([facility]/HCC) (HCC) POCT LIPID PANEL Routine 09/23/2023 3:27 PM CDT Type 2 diabetes mellitus without complication, without long-term current use of insulin (CMS/HCC) (HCC) from Last 3 Months or Most Recently Relevant to Health Maintenance Results * POCT hemoglobin A1c (03/17/2024 4:10 PM CORRESPONDENCE SPECIALIST) Hemoglobin A1C, POC 6.7 4.0 - 5.6 % Capillary blood 03/17/2024 4 :10 PM CORRESPONDENCE SPECIALIST Adam Agarwal MD POINT OF CARE TEST [...] Health Maintenance Insurance AETNA MEDICARE Care Teams Sanitary Plumber Relationship Specialty Start Date End Date Joe Rai MD [facility] [place] [address] PCP - General Family Medicine 07/22/23
--- OUTSIDE RECORDS SUMMARY | 2024-05-29 02:52 | XMS_ITS | Clinical Summary ---
Author Organization [employer] [facility] [address] Address [address] [place] [address] Care Team Providers Care Spar Machine Operator Name Role Phone Joe Rai MD Primary Care Provider [phone] [phone] Allergies No known active allergies Medications atorvastatin [...] 03/17/2024 Assessment & Plan (03/17/2024 1:57 PM SPEEDER OPERATOR): Rx'ed fluconazole. Remain off Synjardy. Encounter for screening colonoscopy 09/23/2023 Type 2 diabetes mellitus wit hout complication, without long-term current use of insulin ([facility]) 09/23/2023 Assessment & Plan (03/17/2024 4:09 PM SPEEDER OPERATOR): A1c is at goal. Will stop Synjardy [...] Department Care Team Description 03/17/2024 1:45 PM SPEEDER OPERATOR Office Visit [facility] [address] [facility] [address] [place] [address] Adam Agarwal MD Type 2 diabetes mellitus without complication, without long-term current use of insulin ([facility]) ([facility]) (Primary Dx); Yeast infection from Last [...] on file Legal Sex Female 8:27 PM SPEEDER OPERATOR Gender Identity Not on file Sexual Orientation Not on file Obstetrics History Last Filed Vital Signs Vital Sign Reading Time Taken Comments Blood Pressure 145/88 03/17/2024 1:38 PM SPEEDER OPERATOR Pulse 85 03/17/2024 1:38 PM SPEEDER OPERATOR Temperature - - Respiratory Rate - - Oxygen Saturation - - Inhaled Oxygen Concentration - - Weight 86.1 kg (189 lb 12.8 oz) 03/17/2024 1:38 PM SPEEDER OPERATOR Height 162.6 cm (5' 4 ) 03/17/2024 1:38 PM SPEEDER OPERATOR Body Mass Index 32.58 03/17/2024 1:38 PM SPEEDER OPERATOR Plan of Treatment Scheduled Procedures Name Priority [...] HEMOGLOBIN A1C Routine 03/17/2024 4 :10 PM SPEEDER OPERATOR Type 2 diabetes mellitus without complication, without long-term current use of insulin ([facility]) ([facility]) POCT LIPID PANEL Routine 09/23/2023 3:27 PM CDT Type 2 diabetes mellitus without complication, without long-term current use of insulin ([facility]) ([facility]) from Last 3 Months or Most Recently Relevant to Health Maintenance Results * POCT hemoglobin A1c (03/17/2024 4:10 PM SPEEDER OPERATOR) Hemoglobin A1C, POC 6.7 4.0 - 5.6 % Capillary blood 03/17/2024 4 :10 PM SPEEDER OPERATOR Adam Agarwal MD POINT OF CARE TEST [...] Health Maintenance Insurance AETNA MEDICARE Care Teams Spar Machine Operator Relationship Specialty Start Date End Date Joe Rai MD [address] [place] [address] [address] PCP - General Family Medicine 07/22/23
--- OUTSIDE RECORDS SUMMARY | 2024-05-29 02:52 | XMS_ITS | Clinical Summary ---
Author Organization [facility] Address [address] [facility] [place] [address] Care Team Providers Care Aquatic Performer Name Role Phone Unavailable Primary Care Provider Unavailabl e Encounters Date Type Department Care Team Description 05/12/2024 External Device Data STL ABSTRACTION Provider, Abstract 05/06/2024 External Device Data STL ABSTRACTION Provider, Abstract 05/06/2024 External Device Data STL ABSTRACTION Provider, Abstract 04/30/2024 10:45 AM SETTER MACHINE Ancillary Procedure [facility] [address] [place] [address] Nathan Gannon MD Kidney stone 04/14/2024 External Device Data STL ABSTRACTION Provider, Abstract 04/13/2024 2:55 PM SETTER MACHINE Ancillary Procedure [facility] [address] [place] [address] Nathan Gannon MD Kidney stone from Last 3 Months Social History Tobacco Use Types Packs/Day Years Used Date Smoking Tobacco: Never Assessed Comments Unknown Sex and Gender Information Value Date Recorded Sex Assigned at Not on file Legal Sex Female 2:42 PM SETTER MACHINE Gender Identity Not on file Sexual Orientation [...] ABDOMEN 1 VW Routine 04/30/2024 11:17 AM SETTER MACHINE Kidney stone XR ABDOMEN 1 VW Routine 04/13/2024 3:08 PM SETTER MACHINE Kidney stone from Last 3 Months Results * XR ABDOMEN 1 VW (04/30/2024 11:17 AM SETTER MACHINE) Only the most recent of2 resultswithin the time period is included. Anatomical Region Laterality Modality Abdomen Computed Radiogr aphy 04/30/2024 11:1 8 AM SETTER MACHINE Impressions 04/30/2024 11:23 AM SETTER MACHINE IMPRESSION: No definite radiographic evidence of nephrolithiasis. Narrative 04/30/2024 11:23 AM SETTER MACHINE EXAM: XR ABDOMEN 1 VW DATE: 04/30/2024 [...] Result from Last 3 Months Insurance AETNA [facility]
[2024-05-29 04:19] LABS: Basophils Absolute Auto 0.1 K/mm3 (0.0-0.1); Basophils Percent Auto 0.5 % (0.2-1.2); Eosinophils Absolute Auto 0.1 K/mm3 (0-0.3); Eosinophils Percent Auto 0.6 % (0-4.4); Hematocrit 40.8 % (37.0-47.0); Hemoglobin 13.8 g/dL (12.0-15.0); Immature Granulocyte Absolute 0.08 K/mm3 (0.00-0.031); Immature Granulocyte Percent A 0.8 % (0-0.5); Lymphocytes Absolute Auto 1.78 K/mm3 (0.9-3.2); Lymphocytes Percent Auto 16.8 % (18.3-44.2); Mean Corpuscular HGB Conc 33.8 g/dl (32-36); Mean Corpuscular Hemoglobin 30.3 pg (26-34); Mean Corpuscular Volume 89.5 fl (80-100); Monocytes Absolute Auto 0.5 K/mm3 (0.1-0.6); Neutrophils Absolute Auto 8.1 K/mm3 (1.3-6.7); Neutrophils Percent Auto 76.3 % (45.5-73.1); Platelet Count Result 193 k/mm3 (150-375); Red Blood Count 4.56 M/mm3 (4.2-5.4); Red Cell Distribution Width 13.2 % (11.5-14.5); White Blood Count 10.6 K/mm3 (4.5-10.0)
[2024-05-29 04:30] LABS: Alanine Aminotransferase 29 U/L (6-35); Albumin Level 4.5 g/dL (3.5-5.1); Alkaline Phosphatase 104 U/L (38-126); Anion Gap 12 mmol/L (4-12); Aspartate Amino Transferase 26 U/L (14-36); Blood Urea Nitrogen 25 mg/dL (7-17); Calcium 9.5 mg/dL (8.4-10.2); Carbon Dioxide 26 mmol/L (22-30); Chloride 101 mmol/L (98-107); Estimated CRCL calculation 56 ml/min; Estimated Glomerular Filt Rate > 60; Glucose 218 mg/dL (65-110); Lipase 160 U/L (23-300); Potassium 3.9 mmol/L (3.4-5.0); Sodium 139 mmol/L (137-145)
--- OUTSIDE RECORDS SUMMARY | 2024-05-29 04:50 | XMS_ITS | Referral Summary ---
Author Organization [facility] [address] Address [address] [place] [address] Care Team Providers Care Tooling Mechanic Name Role Phone Joe Rai MD Primary Care Provider [phone] [phone] Encounters Date Type Department Care Team Description 03/17/2024 1:45 PM CHEMICAL PRODUCTION MACHINE OPERATOR Office Visit [facility] [address] [facility] [address] [place] [address] Adam Agarwal MD Type 2 [...] 03/17/2024 Assessment & Plan (03/17/2024 1:57 PM CHEMICAL PRODUCTION MACHINE OPERATOR): Rx'ed fluconazole. Remain off Synjardy. Encounter for screening colonoscopy 09/23/2023 Type 2 diabetes mellitus wit hout complication, without long-term current use of insulin ([facility]) 09/23/2023 Assessment & Plan (03/17/2024 4:09 PM CHEMICAL PRODUCTION MACHINE OPERATOR): A1c is at goal. Will stop [...] on file Legal Sex Female 8:27 PM CHEMICAL PRODUCTION MACHINE OPERATOR Gender Identity Not on file Sexual Orientation Not on file Last Filed Vital Signs Vital Sign Reading Time Taken Comments Blood Pressure 145/88 03/17/2024 1:38 PM CHEMICAL PRODUCTION MACHINE OPERATOR Pulse 85 03/17/2024 1:38 PM CHEMICAL PRODUCTION MACHINE OPERATOR Temperature - - Respiratory Rate - - Oxygen Saturation - - Inhaled Oxygen Concentration - - Weight 86.1 kg (189 lb 12.8 oz) 03/17/2024 1:38 PM CHEMICAL PRODUCTION MACHINE OPERATOR Height 162.6 cm (5' 4 ) 03/17/2024 1:38 PM CHEMICAL PRODUCTION MACHINE OPERATOR Body Mass Index 32.58 03/17/2024 1:38 PM CHEMICAL PRODUCTION MACHINE OPERATOR Plan of Treatment Scheduled Procedures Name Priority Associated Diagnoses Date/Ti me COLONOSCOPY Open Access Encounter for screening colonoscopy Procedures Procedure Name Priority Date/Time Associated Diagnosis Comments POCT HEMOGLOBIN A1C Routine 03/17/2024 4 :10 PM CHEMICAL PRODUCTION MACHINE OPERATOR Type 2 diabetes mellitus without complication, without long-term current use of insulin ([facility]/HCC) (HCC) POCT LIPID PANEL Routine 09/23/2023 3:27 PM CDT Type 2 diabetes mellitus without complication, without long-term current use of insulin (CMS/HCC) (HCC) from Last 3 Months or Most Recently Relevant to Health Maintenance Results * POCT hemoglobin A1c (03/17/2024 4:10 PM CHEMICAL PRODUCTION MACHINE OPERATOR) Hemoglobin A1C, POC 6.7 4.0 - 5.6 % Capillary blood 03/17/2024 4 :10 PM CHEMICAL PRODUCTION MACHINE OPERATOR Adam Agarwal MD POINT OF CARE [...] Health Maintenance Insurance AETNA MEDICARE Care Teams Tooling Mechanic Relationship Specialty Start Date End Date Joe Rai MD [facility] [facility] [address] [place] [address] PCP - General Family Medicine 07/22/23
--- OUTSIDE RECORDS SUMMARY | 2024-05-29 04:50 | XMS_ITS | Clinical Summary ---
Author Organization [facility] Address [address] [facility] [place] [address] Care Team Providers Care Golf Club Head Inspector And Adjuster Name Role Phone Unavailable Primary Care Provider Unavailabl e Encounters Date Type Department Care Team Description 05/12/2024 External Device Data STL ABSTRACTION Provider, Abstract 05/06/2024 External Device Data STL ABSTRACTION Provider, Abstract 05/06/2024 External Device Data STL ABSTRACTION Provider, Abstract 04/30/2024 10:45 AM FOREIGN AGENT Ancillary Procedure [facility] [address] [place] [address] Nathan Gannon MD Kidney stone 04/14/2024 External Device Data STL ABSTRACTION Provider, Abstract 04/13/2024 2:55 PM FOREIGN AGENT Ancillary Procedure [facility] [address] [place] [address] Nathan Gannon MD Kidney stone from Last 3 Months Social History Tobacco Use Types Packs/Day Years Used Date Smoking Tobacco: Never Assessed Comments Unknown Sex and Gender Information Value Date Recorded Sex Assigned at Not on file Legal Sex Female 2:42 PM FOREIGN AGENT Gender Identity Not on file Sexual Orientation [...] ABDOMEN 1 VW Routine 04/30/2024 11:17 AM FOREIGN AGENT Kidney stone XR ABDOMEN 1 VW Routine 04/13/2024 3:08 PM FOREIGN AGENT Kidney stone from Last 3 Months Results * XR ABDOMEN 1 VW (04/30/2024 11:17 AM FOREIGN AGENT) Only the most recent of2 resultswithin the time period is included. Anatomical Region Laterality Modality Abdomen Computed Radiogr aphy 04/30/2024 11:1 8 AM FOREIGN AGENT Impressions 04/30/2024 11:23 AM FOREIGN AGENT IMPRESSION: No definite radiographic evidence of nephrolithiasis. Narrative 04/30/2024 11:23 AM FOREIGN AGENT EXAM: XR ABDOMEN 1 VW DATE: 04/30/2024 [...] Result from Last 3 Months Insurance AETNA [facility]
--- OUTSIDE RECORDS SUMMARY | 2024-05-29 04:50 | XMS_ITS | Clinical Summary ---
Author Organization [employer] [facility] [address] Address [address] [place] [address] Care Team Providers Care Custom Bookbinder Name Role Phone Joe Rai MD Primary Care Provider [phone] [phone] Allergies No known active allergies Medications atorvastatin [...] 03/17/2024 Assessment & Plan (03/17/2024 1:57 PM MEAT SEAFOOD ASSOCIATE): Rx'ed fluconazole. Remain off Synjardy. Encounter for screening colonoscopy 09/23/2023 Type 2 diabetes mellitus wit hout complication, without long-term current use of insulin ([facility]) 09/23/2023 Assessment & Plan (03/17/2024 4:09 PM MEAT SEAFOOD ASSOCIATE): A1c is at goal. Will stop Synjardy [...] Department Care Team Description 03/17/2024 1:45 PM MEAT SEAFOOD ASSOCIATE Office Visit [facility] [address] [facility] [address] [place] [address] Adam Agarwal MD Type 2 diabetes mellitus without complication, without long-term current use of insulin ([facility]) ([facility]) (Primary Dx); Yeast infection from Last [...] on file Legal Sex Female 8:27 PM MEAT SEAFOOD ASSOCIATE Gender Identity Not on file Sexual Orientation Not on file Obstetrics History Last Filed Vital Signs Vital Sign Reading Time Taken Comments Blood Pressure 145/88 03/17/2024 1:38 PM MEAT SEAFOOD ASSOCIATE Pulse 85 03/17/2024 1:38 PM MEAT SEAFOOD ASSOCIATE Temperature - - Respiratory Rate - - Oxygen Saturation - - Inhaled Oxygen Concentration - - Weight 86.1 kg (189 lb 12.8 oz) 03/17/2024 1:38 PM MEAT SEAFOOD ASSOCIATE Height 162.6 cm (5' 4 ) 03/17/2024 1:38 PM MEAT SEAFOOD ASSOCIATE Body Mass Index 32.58 03/17/2024 1:38 PM MEAT SEAFOOD ASSOCIATE Plan of Treatment Scheduled Procedures Name Priority [...] HEMOGLOBIN A1C Routine 03/17/2024 4 :10 PM MEAT SEAFOOD ASSOCIATE Type 2 diabetes mellitus without complication, without long-term current use of insulin ([facility]) ([facility]) POCT LIPID PANEL Routine 09/23/2023 3:27 PM CDT Type 2 diabetes mellitus without complication, without long-term current use of insulin ([facility]) ([facility]) from Last 3 Months or Most Recently Relevant to Health Maintenance Results * POCT hemoglobin A1c (03/17/2024 4:10 PM MEAT SEAFOOD ASSOCIATE) Hemoglobin A1C, POC 6.7 4.0 - 5.6 % Capillary blood 03/17/2024 4 :10 PM MEAT SEAFOOD ASSOCIATE Adam Agarwal MD POINT OF CARE TEST [...] Health Maintenance Insurance AETNA MEDICARE Care Teams Custom Bookbinder Relationship Specialty Start Date End Date Joe Rai MD [address] [place] [address] [address] PCP - General Family Medicine 07/22/23
[2024-05-29 04:54] LABS: Add Urine Microscopic? YES; Appearance Urine Cloudy (Clear); Bilirubin Urine Negative (Negative); Blood Urine 3+ (Negative); Color Urine Dark Yellow (Yellow); Glucose Urine UA 1+ mg/dL (Negative); Ketones Urine Trace mg/dL (Negative); Leukocyte Esterase Ur Negative LEU/UL (Negative); Nitrate Urine Negative (Negative); Protein Urine 1+ mg/dL (Negative); Specific Grav Ur 1.032 (1.001-1.035)
[2024-05-29 04:55] LABS: Bacteria Urine 1+ /hpf; Squamous Epithelial Cell Urine Few /hpf (Few); WBC Urine 0-5 /hpf (0-3)
[2024-05-29 05:45] VITALS: BP 175/77; PULSE 80; RESP 15; O2SAT 98
[2024-05-29] MEDS: HYDROmorphone HCL INJ (*CRX) 1 MG/ML SYR IV PUSH (06:00)
--- NOTE | 2024-05-29 06:02 | ED_ITS ---
HPI - Abdominal Pain General Chief Complaint: Back Pain/Injury Stated Complaint: lower right flank/back pain Time Seen by Provider: 05/29/24 04:36 History of Present Illness HPI narrative: 73-year-old female presenting to the emergency department for evaluation of new onset and worsening right flank pain. She has previously been doing with a kidney stone since the end of last year and has been seen by Urology and her primary care provider outpatient. She had lithotripsy done outpatient and seemingly her symptoms improved. She has been taking tamsulosin and completed the course. She has tried tramadol at home for her recurrent pain without any relief of her symptoms. She is concerned about recurrence of her kidney stone. Denies any fever chills. States the pain is recurrent and worsening over last 2 days and feels very similar to when they found a kidney stone initially. Denies any dysuria, hematuria, nausea, vomiting. No diarrhea constipation. Was otherwise in her normal state of health these past few days and denies any injury or trauma. Related Data Home Medications ?Medication ?Instructions ?Recorded ?Confirmed ?Last Taken ?Type cholecalciferol (vitamin D3) 125 125 mcg PO DAILY 07/02/22 05/26/24 07/05/22 History mcg (5,000 unit) capsule wjyiitwlfucl-Kx-egld-minerals 2 tablet PO DAILY 07/02/22 05/26/24 07/05/22 History sitagliptin phos 50 mg-metformin 1 tablet PO DAILY 04/23/24 05/26/24 Unknown History ER 500 mg tablet,extended rel 24h mp (Janumet XR) Allergies Allergy/AdvReac Type Severity Reaction Status Date / Time No Known Allergies Allergy Verified 05/26/24 13:31 Review of Systems 2 Review of Systems: As reviewed above in [facility] Past Medical History Medical History Left medial knee pain recent meniscus repair 06/2022 Tear of meniscus of left knee Strain of rectus abdominis muscle Depression Anxiety GERD (gastroesophageal reflux disease) Kidney stone Obesity (BMI 30.0-34.9) Surgical History Surgical History History of left knee surgery (~07/09/22) Arthroscopic partial medial meniscectomy, left knee. History of Family History Family History Mother Family history of Alzheimer's disease Family history of arthritis Father Hypertension Social History Social History Social History: Caffeine-occasionally Smoking status: Never smoker Second hand tobacco smoke exposure: No Alcohol intake: current Alcohol use details: occasionally Substance use: never Substance use type: does not use Do You Feel Safe in your Home?: Yes Lack of Transportation: YES Lack of Food: Never True Current Housing: I Have Housing Concerned About Future Housing: No Difficulty Paying Gas/Electric Bills: No Difficulty Paying for Meds: No Currently Unemployed: No Education: Master's Degree or Higher Difficulty w/ Childcare or Family Care: No Living arrangements: with family Additional living arrangements comments: [place] Gender identity (if verbalized by the patient): Female Spiritual care concerns: No Exam 2 Narrative: GENERAL: Uncomfortable appearing but not any acute distress, answering questions appropriately HEAD: [Normocephalic, atraumatic.] EYES: [PERRLA and EOMI.] ENT: Nares clear, no rhinorrhea or epistaxis. Mucous membranes moist. NECK: Supple. CHEST: [Clear to auscultation. No respiratory distress.] HEART: [Regular rate and rhythm]. No murmur heard. [Normal peripheral pulses.] ABDOMEN: [Soft, nondistended], tender to palpation right lower quadrant but no signs of peritonitis. No CVA tenderness., [No rigidity or guarding] EXTREMITIES: Normal range of motion. [No edema.] SKIN: Warm, dry, no rash. NEURO: [No focal deficits]. Alert and oriented [x3.] PSYCH: [Normal mood and affect.] Course Vital Signs Vital signs: Vital Signs Temperature 36.5 C 05/29/24 02:51 Pulse Rate 63 05/29/24 02:51 Respiratory Rate 19 05/29/24 02:51 Blood Pressure 149/80 H 05/29/24 02:51 Pulse Oximetry 100 05/29/24 02:51 Oxygen Delivery Room Air 05/29/24 02:51 Temperature 36.5 C 05/29/24 02:51 Pulse Rate 63 05/29/24 02:51 Respiratory Rate 19 05/29/24 02:51 Blood Pressure 149/80 H 05/29/24 02:51 Pulse Oximetry 100 05/29/24 02:51 Oxygen Delivery Room Air 05/29/24 02:51 MDM - Abdominal Pain MDM Narrative Medical decision making narrative: 73-year-old female with history of recently diagnosed kidney stones status post lithotripsy with Urology. She recently had outpatient CT scans that showed some migration and progression of her kidney stone but still having some mild chronic hydro on the right side. Endorses intractable pain over last 2 days despite her home medications. She has tenderness in the right lower quadrant but no signs of peritonitis rebound guarding. Vital signs show some stable hypertension but no tachycardia, fever or hypoxia. Considerations presently are for recurrent kidney stone, obstruction now, stricture, hydronephrosis worsening, urinary tract infection or septic stone. She is otherwise well-appearing and less likely to have active infection. Urinalysis was ordered as well as blood work and a CT scan without contrast. She was given a fluid bolus and Dilaudid for analgesia and re-evaluated. Laboratory studies show a minor leukocytosis of 10.6, normal hemoglobin, normal platelet count. Electrolytes are within normal limits, normal renal function panel. Slightly elevated glucose but not significant. Normal LFTs. Negative lipase. Urinalysis shows no signs of active infection. CT scan today shows a 4 mm stone in the distal right ureter as well as a 5 mm stone at the right UVJ with mild hydronephrosis and hydroureter. There is a 3 mm nonobstructing kidney stone on the right side. Ostensibly patient previously had an 8 mm stone on recent scans that has broken up after lithotripsy and these are fragments or she has new or recurrent stone. Will re-evaluate the patient regarding her level of pain tolerance and would likely benefit from Urology re-evaluation outpatient. Patient was re-evaluated after medications and had significant improvement in her pain. Her CT scan shows a 4 mm distal ureter stone and a 5 mm stone at the right UVJ junction, mild chronic right-sided hydro and hydroureter seen on previous scans. 3 mm nonobstructing stone also seen in the right kidney. Laboratory studies showed no significant leukocytosis. Normal hemoglobin, normal platelet level. Chemistry panel shows normal creatinine, normal GFR. Normal electrolytes, normal LFTs. Urinalysis shows no signs of infection. I discussed with the patient the plan going forward. Patient has had symptomatic improvement and normal vital signs and largely unremarkable workup here in the ED. She has close outpatient Urology follow-up and I believe can be safely seen by them outpatient for potential intervention such as repeat lithotripsy versus just medications and seeing how her stones progressed. Patient was comfortable with this plan and was given return precautions including recurrence of her pain, intractable nausea, inability tolerate p.o. intake or difficulty urinating. Patient will be sent home with prescriptions for Toradol, oxycodone for breakthrough pain, Flomax. Zofran as needed. Patient will contact her urologist in the morning and schedule follow-up appointment. Medical Records Attestation: I reviewed the patient's medical records. Lab Data Attestation: I reviewed the patient's lab results. 05/29/24 04:11 05/29/24 04:11 Labs: Lab Results 05/29/24 Range/Units 04:11 WBC 10.6 H (4.5-10.0) K/mm3 RBC 4.56 (4.2-5.4) M/mm3 Hgb 13.8 (12.0-15.0) g/dL Hct 40.8 (37.0-47.0) % MCV 89.5 (80-100) fl MCH 30.3 (26-34) pg MCHC 33.8 (32-36) g/dl RDW 13.2 (11.5-14.5) % Plt Count 193 (150-375) k/mm3 MPV 9.0 (7.4-10.4) fl Immature Gran % (Auto) 0.8 H (0-0.5) % Neut % (Auto) 76.3 H (45.5-73.1) % Lymph % (Auto) 16.8 L (18.3-44.2) % Petroleum % (Auto) 5.0 (2.6-8.5) % Eos % (Auto) 0.6 (0-4.4) % Baso % (Auto) 0.5 (0.2-1.2) % Lymph # (Auto) 1.78 (0.9-3.2) K/mm3 Petroleum # (Auto) 0.5 (0.1-0.6) K/mm3 Eos # (Auto) 0.1 (0-0.3) K/mm3 Baso # (Auto) 0.1 (0.0-0.1) K/mm3 Abs Immat Gran (auto) 0.08 H (0.00-0.031) K/mm3 Absolute Neuts (auto) 8.1 H (1.3-6.7) K/mm3 Absolute Nucleated RBC 0.000 (0.0-0.012) K/mm3 Nucleated RBC % 0.0 (0.0-0.2) % Sodium 139 (137-145) mmol/L Potassium 3.9 (3.4-5.0) mmol/L Chloride 101 (98-107) mmol/L Carbon Dioxide 26 (22-30) mmol/L Anion Gap 12 (4-12) mmol/L BUN 25 H (7-17) mg/dL Creatinine 0.85 (0.7-1.0) mg/dL Estim Creat Clear Calc 56 ml/min Estimated GFR > 60 (59 - ) Glucose 218 H (65-110) mg/dL Calcium 9.5 (8.4-10.2) mg/dL Total Bilirubin 1.0 (0.2-1.3) mg/dL AST 26 (14-36) U/L ALT 29 (6-35) U/L Alkaline Phosphatase 104 (38-126) U/L Total Protein 7.0 (6.3-8.2) g/dL Albumin 4.5 (3.5-5.1) g/dL Lipase 160 (23-300) U/L Urine Color Dark yellow (Yellow) Urine Appearance Cloudy H (Clear) Urine pH 5.0 (5.0-9.0) Ur Specific [place] 1.032 (1.001-1.035) Urine Protein 1+ H (Negative) mg/dL Urine Glucose (UA) 1+ H (Negative) mg/dL Urine Ketones Trace H (Negative) mg/dL Ur Blood (Man) 3+ H (Negative) Urine Nitrate Negative (Negative) Urine Bilirubin Negative (Negative) Urine Urobilinogen 1.0 (<2.0) mg/dL Leukocyte Esterase Rfl Negative (Negative) GILES/UL Urine RBC 11-20 H (0-2) /hpf Urine WBC 0-5 (0-3) /hpf Ur Squamous Epith Cells Few (Few) /hpf Urine Bacteria 1+ /hpf Urine Casts ---- Imaging Data Attestation: I personally reviewed and interpreted this imaging study as follows: My impression: Impressions Abdomen/Pelvis CT 05/29/24 05:58 IMPRESSION: 1. 4 mm stone in distal right ureter and 5 mm stone at right ureterovesicular junction with mild right hydronephrosis and hydroureter. 2. 3 mm nonobstructing right kidney stone. Radiologist's impression: ITS Impressions Abdomen/Pelvis CT 05/29/24 05:58 IMPRESSION: 1. 4 mm stone in distal right ureter and 5 mm stone at right ureterovesicular junction with mild right hydronephrosis and hydroureter. 2. 3 mm nonobstructing right kidney stone. Discharge Plan Discharge Clinical Impression: Kidney stone on right side, Acute right flank pain Patient Disposition: Home, Self-Care Condition: Stable Instructions: Antibiotic Form, Kidney Stones (ED) Additional Instructions: Your CT scan shows 2 smaller fragment kidney stones in the right-sided likely secondary to the larger stone that you had lithotripsy done on previously. Follow-up with your urologist on a short-term basis. We will send you home with pain control medications and symptom control. Call urologist in the morning to schedule follow-up. Return with any new or worsening concerns at any time. Patient Language: Bolivian Prescriptions: New ketorolac 10 mg tablet 10 mg PO Q8H PRN (Reason: pain) 5 Days Qty: 20 0RF Rx Instructions: maximum total duration of 5 days from all oral, intranasal, or parenteral formulations tamsulosin [Flomax] 0.4 mg capsule 0.4 mg PO DAILY Qty: 20 0RF ondansetron 4 mg tablet,disintegrating 4 mg PO Q8H PRN (Reason: nausea and vomiting) Qty: 10 0RF oxycodone 5 mg tablet 5 mg PO Q8H PRN (Reason: pain) Qty: 12 0RF No Action Janumet XR 50-500 mg tablet, ER multiphase 24 hr 1 tablet PO DAILY cholecalciferol (vitamin D3) 125 mcg (5,000 unit) Capsule 125 mcg PO DAILY jefssvlhjklk-Sh-aekh-minerals Tablet 2 tablet PO DAILY fluoxetine 10 mg capsule 10 mg PO QAM Qty: 90 1RF atorvastatin 40 mg tablet See Rx Instructions .ROUTE .COMPLEX Qty: 90 1RF Dose Instruction: 40 MG ORALLY DAILY Rx Instructions: 40 MG ORALLY DAILY Follow-up/Referrals: Joe Rai MD [Primary Care Provider] - Time of Disposition: 06:27
[2024-05-29] MEDS: LACTATED RINGERS 1,000 ML 999 ML IV CONT (06:14)
[2024-05-29] MEDS: KETOROLAC 30 MG/ML VIAL (*BKC) IV PUSH (06:42)
[2024-05-29] MEDS: TAMSULOSIN HCL 0.4 MG CAPSULE PO (06:42)
[2024-05-29 06:58] VITALS: BP 156/76; PULSE 75; RESP 15; O2SAT 99
== END 2024-05-29 07:00 | disposition home or self-care (01) ==
PROVIDERS: Emergency Provider Student in an Organized Health Care Education/Training Program; PCP Family Medicine
DX: N13.2 Hydronephrosis with renal and ureteral calculous obstruction (principal); K21.9 Gastro-esophageal reflux disease without esophagitis; E66.9 Obesity, unspecified; Z68.32 Body mass index [BMI] 32.0-32.9, adult; Z87.442 Personal history of urinary calculi; Z79.899 Other long term (current) drug therapy; Z79.84 Long term (current) use of oral hypoglycemic drugs
CPT/HCPCS: 36415; 74176; 80053; 81001; 83690; 85025; 96374; 96375; 99284; A9270; J1171; J1885; J7120

== ENCOUNTER 2024-09-14 14:38 | Outpatient (CLI) | payer MEDICARE, SELFPAY ==
--- OUTSIDE RECORDS SUMMARY | 2024-09-14 14:57 | XMS_ITS | Clinical Summary ---
Author Organization [facility] [address] Address [address] [place] [address] Care Team Providers Care Supercalender Operator Name Role Phone Joe Rai MD Primary Care Provider [phone] Allergies No known active allergies Medications atorvastatin (LIPITOR) 40 mg tablet Take 1 tablet (40 mg total) by mouth daily 08/05/2023 Active FLUoxetine 10 mg capsule Take 1 tablet/capsul e (10 mg total) by mouth daily 08/06/2023 Active fluconazole (DIFLUCAN) 150 mg tablet Take one tab now. Repeat in 7 days if symptoms persist. 2 tablet 03/17/2024 Active Janumet XR 50-500 mg tablet, ER multiphase 24 hr 1 TABLET DAILY 90 tablet 1 06/24/2024 Active Active Problems Problem Noted Date Diagnosed Date Yeast infection 03/17/2024 Assessment & Plan (03/17/2024 1:57 PM COMMISSIONER OF INTERNAL REVENUE): Rx'ed fluconazole. Remain off Synjardy. Encounter for screening colonoscopy 09/23/2023 Type 2 diabetes mellitus wit hout complication, without long-term current use of insulin 09/23/2023 Assessment & Plan (03/17/2024 4:09 PM COMMISSIONER OF INTERNAL REVENUE): A1c is at goal. Will stop Synjardy [...] current therapy. 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 Immunizations Immunization Administration Dates Next Due Influenza, Quad, Adjuvantated, [...] UTERUS Dilation And Curettage - (Added by TW Conv) Medical History Medical History Date Comments [...] on file Legal Sex Female 8:27 PM COMMISSIONER OF INTERNAL REVENUE Gender Identity Not on file Sexual Orientation Not on file Obstetrics History Last Filed Vital Signs Vital Sign Reading Time Taken Comments Blood Pressure 145/88 03/17/2024 1:38 PM COMMISSIONER OF INTERNAL REVENUE Pulse 85 03/17/2024 1:38 PM COMMISSIONER OF INTERNAL REVENUE Temperature - - Respiratory Rate - - Oxygen Saturation - - Inhaled Oxygen Concentration - - Weight 86.1 kg (189 lb 12.8 oz) 03/17/2024 1:38 PM COMMISSIONER OF INTERNAL REVENUE Height 162.6 cm (5' 4) 03/17/2024 1:38 PM COMMISSIONER OF INTERNAL REVENUE Body Mass Index 32.58 03/17/2024 1:38 PM COMMISSIONER OF INTERNAL REVENUE Plan of Treatment Scheduled Procedures Name Priority [...] 2023-2 5 season) 2023 02/14/2022, 2020, 05/28/2020 Hemoglobin A1C 09/15/2024 03/17/2024 Lipid Panel 09/22/2024 09/23/2023 Influenza Vaccine (Season Ended) 2024 01/25/2023, 01/23/2022, 03/21/2021, Additional history exists DTaP/Tdap/Td Vaccine (2 - Td or Tdap) 03/21/2031 03/21/2021 Pneumococcal vaccine 65+ Completed 03/09/2019, 01/14 Procedures Procedure Name Priority Date/Time Associated Diagnosis Comments POCT HEMOGLOBIN A1C Routine 03/17/2024 4 :10 PM COMMISSIONER OF INTERNAL REVENUE Type 2 diabetes mellitus without complication, without long-term current use of insulin (HCC) POCT LIPID PANEL Routine 09/23/2023 3:27 PM CDT Type 2 diabetes mellitus without complication, without long-term current use of insulin (HCC) from Last 3 Months or Most Recently Relevant to Health Maintenance Results * POCT hemoglobin A1c (03/17/2024 4:10 PM COMMISSIONER [employer] INTERNAL REVENUE) Hemoglobin A1C, POC 6.7 4.0 - 5.6 % Capillary blood 03/17/2024 4 :10 PM COMMISSIONER OF INTERNAL REVENUE Adam Agarwal MD POINT OF CARE TEST ORDERABLES Final Result * POCT lipid panel (09/23/2023 3:27 PM CDT) Cholesterol, POC 116 mg/dL HDL, POC 42 mg/dL Triglycerides, POC 201 mg/dL LDL Cholesterol POC 33 mg/dL Chol/HDL Ratio, POC 2.7 Non-HDL Cholesterol, POC 73 mg/dL Capillary blood 09/23/2023 3 :27 PM CDT Adam Agarwal MD POINT OF CARE TEST ORDERABLES Final Result from Last 3 Months or Most Recently Relevant to Health Maintenance Insurance [facility] MEDICARE Care Teams Supercalender Operator Relationship Specialty Start Date End Date Joe Rai MD [facility] [facility] [address] [place] [address] PCP - General Family Medicine 07/22/23
--- OUTSIDE RECORDS SUMMARY | 2024-09-14 14:57 | XMS_ITS | Clinical Summary ---
Author Organization [facility] Address [address] [place] [address] Care Team Providers Care Software Development Analyst Name Role Phone Unavailable Primary Care Provider Unavailabl e Encounters Date Type Department Care Team Description 09/08/2024 External Device Data [facility] ABSTRACTION Provider, Abstract 09/03/2024 External Device Data [facility] ABSTRACTION Provider, Abstract 09/02/2024 External Device Data [facility] ABSTRACTION Provider, Abstract 09/01/2024 External Device Data [facility] ABSTRACTION Provider, Abstract 07/13/2024 10:00 AM CDT Ancillary Procedure [facility] [address] [place] [id number] Nathan Gannon MD Kidney stone 07/01/2024 External Device Data [facility] ABSTRACTION Provider, Abstract 06/20/2024 External Device Data [facility] ABSTRACTION Provider, Abstract 06/19/2024 External Device Data [facility] ABSTRACTION Provider, Abstract 06/17/2024 External Device Data [facility] ABSTRACTION Provider, Abstract from Last 3 Months Social History Tobacco Use Types Packs/Day Years Used Date Smoking Tobacco: Never Assessed Comments Unknown Sex and Gender Information Value Date Recorded Sex Assigned at Not on file Legal Sex Female 2:42 PM STEERSMAN Gender Identity Not on file Sexual Orientation [...] d or Tdap) 03/21/2031 03/21/2021 PNEUMOCOCCAL VACCINE 50+ YEARS Completed 03/09/2019 , 02/03/2018 Procedures Procedure Name Priority Date/Time Associated Diagnosis Comments XR ABDOMEN 1 VW Routine 07/13/2024 10:03 AM CDT Kidney stone from Last 3 Months Results * XR ABDOMEN 1 VW (07/13/2024 10:03 AM CDT) Anatomical Region Laterality Modality Abdomen Computed Radiogr aphy 07/13/2024 10:0 3 AM CDT Impressions 07/13/2024 10:11 AM CDT IMPRESSION: No radiographic evidence of nephrolithiasis. Narrative 07/13/2024 10:11 AM CDT EXAM: XR ABDOMEN 1 VW DATE: 07/13/2024 CLINICAL HISTORY: Nephrolithiasis TECHNIQUE: Supine AP views of the abdomen were submitted for review. Comparison is made to a prior exam performed April 30, 2024. FINDINGS: The bowel gas pattern is unremarkable. There is no evidence of bowel loop dilatation. There is no evidence of free air on this single supine exam. No definite renal calculi are identified, though evaluation is limited by overlying bowel gas. The visible lung bases are clear. Multilevel degenerative changes are again seen in the visible portion of the spine. Procedure Note Shyanne Smith MD - 07/13/2024 EXAM: XR ABDOMEN 1 VW DATE: 07/13/2024 CLINICAL HISTORY: Nephrolithiasis TECHNIQUE: Supine AP views of the abdomen were submitted for review. Comparison is made to a prior exam performed April 30, 2024. FINDINGS: The bowel gas pattern is unremarkable. There is no evidence of bowel loop dilatation. There is no evidence of free air on this single supine exam. No definite renal calculi are identified, though evaluation is limited by overlying bowel gas. The visible lung bases are clear. Multilevel degenerative changes are again seen in the visible portion of the spine. IMPRESSION: No radiographic evidence of nephrolithiasis. us Nathan Gannon MD DIAGNOSTIC IMAGING ORDERAB LES Final Result from Last 3 Months Insurance [employer] [facility]
--- OUTSIDE RECORDS SUMMARY | 2024-09-14 14:57 | XMS_ITS | Referral Summary ---
Author Organization [facility] [address] Address [address] [place] [address] Care Team Providers Care Pediatric Psychiatrist Name Role Phone Joe Ria MD Primary Care Provider [phone] Allergies No known active allergies Medications atorvastatin [...] 03/17/2024 Assessment & Plan (03/17/2024 1:57 PM ELECTRIC SPOT WELDER): Rx'ed fluconazole. Remain off Synjardy. Encounter for screening colonoscopy 09/23/2023 Type 2 diabetes mellitus wit hout complication, without long-term current use of insulin 09/23/2023 Assessment & Plan (03/17/2024 4:09 PM ELECTRIC SPOT WELDER): A1c is at goal. Will stop [...] on file Legal Sex Female 8:27 PM ELECTRIC SPOT WELDER Gender Identity Not on file Sexual Orientation Not on file Last Filed Vital Signs Vital Sign Reading Time Taken Comments Blood Pressure 145/88 03/17/2024 1:38 PM ELECTRIC SPOT WELDER Pulse 85 03/17/2024 1:38 PM ELECTRIC SPOT WELDER Temperature - - Respiratory Rate - - Oxygen Saturation - - Inhaled Oxygen Concentration - - Weight 86.1 kg (189 lb 12.8 oz) 03/17/2024 1:38 PM ELECTRIC SPOT WELDER Height 162.6 cm (5' 4) 03/17/2024 1:38 PM ELECTRIC SPOT WELDER Body Mass Index 32.58 03/17/2024 1:38 PM ELECTRIC SPOT WELDER Plan of Treatment Scheduled Procedures Name Priority Associated Diagnoses Date/Ti me COLONOSCOPY Open Access Encounter for screening colonoscopy Procedures Procedure Name Priority Date/Time Associated Diagnosis Comments POCT HEMOGLOBIN A1C Routine 03/17/2024 4 :10 PM ELECTRIC SPOT WELDER Type 2 diabetes mellitus without complication, without long-term current use of insulin (HCC) POCT LIPID PANEL Routine 09/23/2023 3:27 PM CDT Type 2 diabetes mellitus without complication, without long-term current use of insulin (HCC) from Last 3 Months or Most Recently Relevant to Health Maintenance Results * POCT hemoglobin A1c (03/17/2024 4:10 PM ELECTRIC SPOT WELDER) Hemoglobin A1C, POC 6.7 4.0 - 5.6 % Capillary blood 03/17/2024 4 :10 PM ELECTRIC SPOT WELDER Adam Agarwal MD POINT OF CARE [...] Health Maintenance Insurance [employer] MEDICARE Care Teams Pediatric Psychiatrist Relationship Specialty Start Date End Date Joe Rai MD [address] [place] [address] [place] [address] PCP - General Family Medicine 07/22/23
[2024-09-14 20:29] LABS: Alanine Aminotransferase 29 U/L (6-35); Albumin Level 4.3 g/dL (3.5-5.1); Alkaline Phosphatase 75 U/L (38-126); Anion Gap 9 mmol/L (4-12); Aspartate Amino Transferase 42 U/L (14-36); Bilirubin,Total 1.2 mg/dL (0.2-1.3); Blood Urea Nitrogen 25 mg/dL (7-17); Calcium 9.3 mg/dL (8.4-10.2); Carbon Dioxide 26 mmol/L (22-30); Chloride 102 mmol/L (98-107); Cholesterol 134 mg/dL (0-200); Estimated Glomerular Filt Rate > 60; Glucose 171 mg/dL (65-110); HDL Direct 43 mg/dL; Potassium 4.3 mmol/L (3.4-5.0); Sodium 137 mmol/L (137-145); Triglycerides 124 mg/dL (<150)
[2024-09-14 20:46] LABS: LDL Cholesterol Direct 57 mg/dL
[2024-09-14 21:52] LABS: Hemoglobin A1C 6.5 % (<5.7)
== END 2024-09-14 14:39 | disposition home or self-care (01) ==
PROVIDERS: PCP Family Medicine; Visit Provider Family Medicine
DX: E11.9 Type 2 diabetes mellitus without complications (principal)
CPT/HCPCS: 36415; 80053; 80061; 83036

== ENCOUNTER 2024-10-12 00:13 | Day surgery (SDC) | payer MEDICARE, SELFPAY ==
[2024-09-25 14:34] VITALS: BMI 32.5
[2024-10-12 11:36] VITALS: BP 141/82; PULSE 75; RESP 18; TEMP 36.7; O2SAT 98
[2024-10-12 11:53] LABS: Glucose Point of Care 147 mg/dl (65-105)
--- NOTE | 2024-10-12 12:24 | P.PNAN_ITS ---
Anes - Initial Pre Proc Eval Procedure: Operation Date: 10/12/24 12:30 Proposed Procedures p Screening Colonoscopy - David Camp MD Date/Time: 10/12/24 12:24 Surgeon: David Camp MD Pre Op Diagnosis: screening Patient Data Age: 74 Gender: F Height: 1.63 m Weight: 86.7 kg Last Vital Signs Temp 36.7 C 10/12/24 11:36 Pulse 75 10/12/24 11:36 Resp 18 10/12/24 11:36 BP 141/82 H 10/12/24 11:36 Pulse Ox 98 10/12/24 11:36 O2 Del Method Room Air 10/12/24 11:36 Allergies Allergy/AdvReac Type Severity Reaction Status Date / Time No Known Allergies Allergy Verified 10/12/24 11:33 Home Medications ?Medication ?Instructions ?Recorded ?Confirmed ?Type cholecalciferol (vitamin D3) 125 125 mcg PO DAILY 07/02/22 10/12/24 History mcg (5,000 unit) capsule cctlvdcfgtsg-Gx-ejqj-minerals 2 tablet PO DAILY 07/02/22 10/12/24 History atorvastatin 40 mg tablet See Rx Instructions .Route 02/07/24 10/12/24 Rx .COMPLEX #90 tabs sitagliptin phos 50 mg-metformin 1 tablet PO DAILY 04/23/24 10/12/24 History ER 500 mg tablet,extended rel 24h mp (Janumet XR) fluoxetine 10 mg capsule See Rx Instructions .Route 08/06/24 10/12/24 Rx .COMPLEX #90 caps Laboratory Tests 10/12/24 11:48 POC Capillary Glucose 147 H mg/dl (65-105) Patient hx anesthesia problems: none Family hx anesthesia problems: none Results Review: All pre-operative results and documents have been reviewed as part of the pre- operative evaluation. [facility] Past Medical History Medical History Left medial knee pain recent meniscus repair 06/2022 Tear of meniscus of left knee Strain of rectus abdominis muscle Depression Anxiety GERD (gastroesophageal reflux disease) Kidney stone Obesity (BMI 30.0-34.9) Surgical History Surgical History H/O ureteroscopy History of left knee surgery (~07/09/22) Arthroscopic partial medial meniscectomy, left knee. History of Family History Family History Mother Family history of Alzheimer's disease Family history of arthritis Father Hypertension Social History Social History Social History: Caffeine-occasionally Smoking status: Never smoker Second hand tobacco smoke exposure: No Alcohol intake: current Alcohol use details: occasionally Substance use: never Substance use type: does not use Do You Feel Safe in your Home?: Yes Lack of Transportation: YES Lack of Food: Never True Current Housing: I Have Housing Concerned About Future Housing: No Difficulty Paying Gas/Electric Bills: No Difficulty Paying for Meds: No Currently Unemployed: No Education: Master's Degree or Higher Difficulty w/ Childcare or Family Care: No Living arrangements: with family Additional living arrangements comments: INES Gender identity (if verbalized by the patient): Female Spiritual care concerns: No Anes - Eval Final PreProcedure Day of Procedure 10/12/24 12:24 Patient weight: obese Heart: regular rate and rhythm Lungs: clear to auscultation Airway: Mallampati scale class II Neurological: alert and oriented Last oral intake: >/= 8 hours ASA classification: III Emergent: no Anesthetic plan: proceed Anesthesia type and monitoring: general GIVS and standard monitoring Results Review: All pre-operative results and documents have been reviewed as part of the pre- operative evaluation. Informed Consent: The patient's anesthetic plan and its attendant risks and benefits were discussed with the patient/family/POA. Questions were solicited and answers provided to the satisfaction of the patient/family/POA.
--- NOTE | 2024-10-12 13:12 | PM.IMHP ---
H&P: HPI History of Present Illness Date/Time: 10/12/24 13:12 Chief Complaint: Screening colonoscopy Narrative: This is the patient's first colonoscopy. There are no GI symptoms and there is no family history of colorectal cancer. Review of Systems Review of Systems: All systems reviewed & are unremarkable except as noted in HPI and below PMFSH Past Medical History Medical History Left medial knee pain recent meniscus repair 06/2022 Tear of meniscus of left knee Strain of rectus abdominis muscle Depression Anxiety GERD (gastroesophageal reflux disease) Kidney stone Obesity (BMI 30.0-34.9) Surgical History Surgical History H/O ureteroscopy History of left knee surgery (~07/09/22) Arthroscopic partial medial meniscectomy, left knee. History of Family History Family History Mother Family history of Alzheimer's disease Family history of arthritis Father Hypertension Social History Social History Social History: Caffeine-occasionally Smoking status: Never smoker Second hand tobacco smoke exposure: No Alcohol intake: current Alcohol use details: occasionally Substance use: never Substance use type: does not use Do You Feel Safe in your Home?: Yes Lack of Transportation: YES Lack of Food: Never True Current Housing: I Have Housing Concerned About Future Housing: No Difficulty Paying Gas/Electric Bills: No Difficulty Paying for Meds: No Currently Unemployed: No Education: Master's Degree or Higher Difficulty w/ Childcare or Family Care: No Living arrangements: with family Additional living arrangements comments: INES Gender identity (if verbalized by the patient): Female Spiritual care concerns: No Meds Home Medications and Allergies Home Medications ?Medication ?Instructions ?Recorded ?Confirmed ?Type cholecalciferol (vitamin D3) 125 125 mcg PO DAILY 07/02/22 10/12/24 History mcg (5,000 unit) capsule dasjikfwmqqp-Zz-efuf-minerals 2 tablet PO DAILY 07/02/22 10/12/24 History atorvastatin 40 mg tablet See Rx Instructions .Route 02/07/24 10/12/24 Rx .COMPLEX #90 tabs sitagliptin phos 50 mg-metformin 1 tablet PO DAILY 04/23/24 10/12/24 History ER 500 mg tablet,extended rel 24h mp (Janumet XR) fluoxetine 10 mg capsule See Rx Instructions .Route 08/06/24 10/12/24 Rx .COMPLEX #90 caps Allergies Allergy/AdvReac Type Severity Reaction Status Date / Time No Known Allergies Allergy Verified 10/12/24 11:33 Vital Signs Vital Signs - 24 hr 10/12/24 11:36 Temperature 98.1 F Pulse Rate 75 Respiratory Rate 18 Blood Pressure 141/82 H Pulse Oximetry 98 Oxygen Delivery Room Air Exam Const: General: cooperative and healthy appearing Resp: Effort & Inspection: normal respiratory effort and able to speak in complete sentences Auscultation: clear to auscultation bilaterally Cardio: Rate: regular rate Rhythm: regular rhythm GI: Inspection: normal to inspection GI Palp: No No hepatosplenomegaly present Auscultation: normal bowel sounds Rectal Exam: deferred Skin: General skin exam: normal color Psych: Appearance: grossly normal Mental Status: mental status grossly normal Assessment and Plan Assessment and plan (1) Encounter for screening colonoscopy: Code(s): Z12.11 - Encounter for screening for malignant neoplasm of colon Status: Acute Plan The patient is deemed a good candidate for the procedure. Consent signed. Will proceed.
[2024-10-12 13:35] VITALS: BP 170/79; PULSE 72; RESP 18; O2SAT 95
--- NOTE | 2024-10-12 13:36 | S_PTH ---
PATIENT: Osiris Carrizales LOC: [facility] Sen#:[id number] AGE/SX: 74/F ROOM: RE10/12/[address]: David Camp MD : 1950 BED: DIS: 10/12/2024 SPEC #: [id number] RECD: 10/12/24 14:07 STATUS: YVONNE REAngeline #: [id number] JOSE: 10/12/24 13:[address]: David Camp DEPT: [facility] Surgical RECD BY: Marissa Quintero ENTERED: 10/12/24 14:07 SP TYPE: Surgical OTHR DR: Joe Rai MD Tissues: A - Colon Polypectomy Procedures: Hematoxylin and Eosin Stain Gross and Microscopic Level 4
[2024-10-12 13:45] VITALS: BP 145/70; PULSE 67; RESP 18; O2SAT 94
== END 2024-10-12 14:11 | disposition home or self-care (01) ==
PROVIDERS: PCP Family Medicine; Referring Provider Family Medicine; Visit Provider Internal Medicine Gastroenterology
PROC: 0DJD8ZZ Inspection of Lower Intestinal Tract, Via Natural or Artificial Opening Endoscopic (ICD-10-PCS; CPT 45378; principal; 2024-10-12 12:30)
DX: Z12.11 Encounter for screening for malignant neoplasm of colon (principal); D12.2 Benign neoplasm of ascending colon; K57.30 Diverticulosis of large intestine without perforation or abscess without bleeding; K64.8 Other hemorrhoids; E66.9 Obesity, unspecified; Z68.32 Body mass index [BMI] 32.0-32.9, adult; Z79.84 Long term (current) use of oral hypoglycemic drugs
CPT/HCPCS: 45385; 82948; 88305; J2704

== ENCOUNTER 2025-01-20 14:20 | Outpatient (CLI) | payer MEDICARE, SELFPAY ==
--- NOTE | ~2025-01-20 | MM_ITS ---
EXAMINATION: screening [facility] BI w shell INDICATION: Asymptomatic, referred for screening mammogram COMPARISON: None available TECHNIQUE: Digital Breast Tomosynthesis CC, MLO views of Both breasts were obtained with computer-aided detection to assist in interpretation of the study. FINDINGS: There are scattered areas of fibroglandular density. There is a mass in the superior lateral right breast at posterior third. There is a focal asymmetry in the superior medial right breast at anterior third. There is a focal asymmetry in the lateral central retroareolar right breast at anterior third. There is an asymmetry seen on the cc view in the Lateral right breast at middle third. Elsewhere, there are no mammographic features of malignancy. IMPRESSION: 1. Right breast asymmetries and a mass. 2. No evidence of malignancy in the Left breast. RECOMMENDATION: Right breast Diagnostic mammogram with true lateral, appropriate spot compression views and an ultrasound if needed. BI-RADS Category 0: Incomplete: Needs additional imaging evaluation. Reviewed, dictated and finalized at location B. IMPRESSION: 1. Right breast asymmetries and a mass. 2. No evidence of malignancy in the Left breast. RECOMMENDATION: Right breast Diagnostic mammogram with true lateral, appropriate spot compressi on views and an ultrasound if needed. BI-RADS Category 0: Incomplete: Needs additional imaging evaluation.
--- NOTE | ~2025-01-20 | DEXA_ITS ---
Bone Density Report Name: SAÚL PRADO Age: 74 Sex: Female Ethnicity: White Date of : 1950 Indication: postmenopausal; screening for osteoporosis; height loss; Referring Provider: GIOVANA JOHNSON Study: Bone densitometry was performed. Exam Date: January 20, 2025 Accession number: [id number] Bone Density: Region BMD T-score Z-score Classification AP Spine(L1-L4) 0.971 -0.7 1.6 Normal Femoral Neck (Left) 0.630 -2.0 0.0 Osteopenia Total Hip (Left) 0.837 -0.9 0.8 Normal Femoral Neck (Right) 0.635 -1.9 0.1 Osteopenia Total Hip (Right) 0.853 -0.7 1.0 Normal Femoral Neck Mean 0.633 -1.9 0.0 Osteopenia Total Hip Mean 0.845 -0.8 0.9 Normal World Health Organization criteria for BMD impression classify patients as: Normal (T-score at or above -1.0), Osteopenia (T-score between -1.0 and -2.5), or Osteoporosis (T-score at or below -2.5). 10-year Fracture Risk(1): Major Osteoporotic Fracture 12% Hip Fracture 2.5% Reported Risk Factors: [place] (), Neck BMD=0.630, BMI=33.7 (1) FRAX(R) Version 3.08. Fracture probability calculated for an untreated patient. Fracture probability may be lower if the patient has received treatment. Clinical Information Provided by Patient: Has used the following medications: Vitamin D, multi Patient maximum height was 64 Menopause Age: 44 No regular weight bearing exercise Onset of menses at age 13 Number of children 3 Impression: The patient has low bone mass, based on the Left Femoral Neck T-score. Discussion: BONE DENSITY IS LOW AT ONE OR MORE SKELETAL SITES. This patient's lowest T-score is low at one or more skeletal sites. It meets the World Health Organization's (WHO) criteria for ?low bone mass? (T-score between -1.0 and -2.5). The patient's 10-year risk of fracture as calculated by FRAX is less than the threshold where pharmacological therapy is recommended by the National Osteoporosis Foundation (NOF). However, all treatment decisions require clinical judgment and consideration of individual patient factors, including patient preferences, comorbidities, previous drug use, risk factors not captured in the FRAX model (e.g., frailty, falls, vitamin D deficiency, increased bone turnover, interval significant decline in bone density) and possible under or overestimation of fracture risk by FRAX. The patient should follow a healthful lifestyle (good nutrition with adequate calcium and vitamin D, and appropriate weight-bearing exercise). Follow-Up: Consider repeating this study in 2 to 3 years to reassess this patient's status, or sooner if there is some new clinical indication. Reported by: RON on 01/20/2025 2:37:00 PM. Reviewed, dictated and finalized at location A.
== END 2025-01-20 14:21 | disposition home or self-care (01) ==
LOC: CHSIMG 14:21
PROVIDERS: PCP Family Medicine; Visit Provider Nurse Practitioner Family
DX: Z12.31 Encounter for screening mammogram for malignant neoplasm of breast (principal); Z78.0 Asymptomatic menopausal state; M85.89 Other specified disorders of bone density and structure, multiple sites; R92.8 Other abnormal and inconclusive findings on diagnostic imaging of breast
CPT/HCPCS: 77063; 77067; 77080

== ENCOUNTER 2025-02-09 10:30 | Outpatient (CLI) | payer MEDICARE, SELFPAY ==
--- NOTE | ~2025-02-09 | MMUS_ITS ---
EXAMINATION: MM diagnostic porsche RT w shell, US breast RT complete HISTORY: Follow-up nodular asymmetries of the right breast TECHNIQUE: Additional 3-D tomosynthesis images of the right breast were performed and synthetic 2-D images were generated. CAD analysis was submitted and interpreted. High resolution complete right breast ultrasound was performed. COMPARISON: 01/20/2025 BREAST PARENCHYMAL COMPOSITION: Not dense: There are scattered areas of fibroglandular density. FINDINGS: MAMMOGRAPHIC FINDINGS: There is a persistent mass in the inner aspect of the left breast at approximately 3:00 position, anterior-middle depth. There is a low-density mass in the upper central right breast, likely benign. ULTRASOUND: Complete US of all 4 quadrants of the right breast/s and retroareolar region was reviewed. There is a benign 1 cm lipoma the right breast at 3:00 near the nipple. There is a small 5 mm lipoma at 4:00, 5 cm from the nipple. At 4:00, 3 cm from the nipple there is a 4 mm cyst. At 6:00 near the nipple there is a 5 mm lipoma. No suspicious masses are identified. IMPRESSION: 1. Probable benign masses of the right breast. Some of the nodular asymmetries do not definitely have sonographic correlates. 2. Recommend 6 month follow-up diagnostic right mammogram and right breast ultrasound. BI-RADS category 3, probably benign findings. Reviewed, dictated and finalized at location B. IMPRESSION: 1. Probable benign masses of the right breast. Some of the nodular asymmetries do not definitely have sonographic correlates. 2. Recommend 6 month follow-up diagnostic right mammogram and right breast ultr asound. BI-RADS category 3, probably benign findings.
--- OUTSIDE RECORDS SUMMARY | 2025-02-09 12:08 | XMS_ITS | Clinical Summary ---
Author Organization [employer] [facility] [address] Address [address] [place] [address] Care Team Providers Care Vehicle Body Sander Name Role Phone Joe Rai MD Primary Care Provider [phone] Allergies No known active allergies Medications atorvastatin (LIPITOR) 40 mg tablet Take 1 tablet (40 mg total) by mouth daily 08/05/2023 Active FLUoxetine 10 mg capsule Take 1 tablet/caps ule (10 mg total) by mouth daily 08/06/2023 Active Janumet XR 50-500 mg tablet, ER multiphase 24 hr 1 TABLET DAILY 90 tablet 1 06/24/2024 Active Active Problems Problem Noted Date Diagnosed Date Yeast infection 03/17/2024 Assessment & Plan (03/17/2024 1:57 PM HAT RENOVATOR): Rx'ed fluconazole. Remain off Synjardy. Encounter for screening colonoscopy 09/23/2023 Type 2 diabetes mellitus wit hout complication, without long-term current use of insulin 09/23/2023 Assessment & Plan (09/17/2024 12:40 PM CDT): A1c at goal on current therapy. Labs to be sent to me. Recommend yearly eye exams. There is no evidence of neuropathy on monofilament exam today. Assessment & Plan (03/17/2024 4:09 PM HAT RENOVATOR): A1c is at goal. Will stop Synjardy [...] PCP. Other hyperlipidemia 09/23/2023 Assessment & Plan (09/17/2024 12:40 PM CDT): Continue statin. She will forward me her recent labs. Assessment & Plan (09/23/2023 3:09 PM CDT): [...] History Medical History Date Comments Diabetes mellitus Hyperlipidemia Kidney stone Family History Medical History Relation Name Comments Hypertension Father Hypertension - (Added by TW Conv) Relation Name Status Comments Father Social History Tobacco Use Types Packs/Day Years Used Date Smoking Tobacco: Never Tobacco Cessation:Counseling Given: Not Answered Comments Unknown Sex and Gender Information Value Date Recorded Sex Assigned at Not on file Legal Sex Female 8:27 PM HAT RENOVATOR Gender Identity Not on file Sexual Orientation Not on file Obstetrics History Last Filed Vital Signs Vital Sign Reading Time Taken Comments Blood Pressure 120/78 09/17/2024 11:25 AM CDT Pulse 69 09/17/2024 11:25 AM CDT Temperature - - Respiratory Rate - - Oxygen Saturation - - Inhaled Oxygen Concentration - - Weight 88.3 kg (194 lb 9.6 oz) 09/17/2024 11:25 AM CDT Height 162.6 cm (5' 4) 09/17/2024 11:25 AM CDT Body Mass Index 33.4 09/17/2024 11:25 AM CDT Plan of Treatment Scheduled Procedures Name Priority [...] of 2) 06/26/2001 Well Visit 65+ 06/26/2016 Lipid Panel 09/22/2024 09/23/2023 Covid-19 Vaccine (4 - 2024-2 6 season) 2024 02/14/2022, 2020, 05/28/2020 Influenza Vaccine (#1) 2024 3, 01/23/2022, 03/21/2021, Additional history exists Hemoglobin A1C 03/19/2025 09/17/2024, 03/17/2024 DTaP/Tdap/Td Vaccine (2 - Td or Tdap) 03/21/2031 03/21/2021 Pneumococcal vaccine 65+ Completed 03/09/2019, 01/14 Procedures Procedure Name Priority Date/Time Associated Diagnosis Comments POCT HEMOGLOBIN A1C Routine 09/17/2024 1 2:40 PM CDT Type 2 diabetes mellitus without complication, without long-term current use of insulin (HCC) POCT LIPID PANEL Routine 09/23/2023 3:27 PM CDT Type 2 diabetes mellitus without complication, without long-term current use of insulin (HCC) from Last 3 Months or Most Recently Relevant to Health Maintenance Results * (ABNORMAL) POCT hemoglobin A1c (09/17/2024 12:40 PM CDT) Hemoglobin A1C, POC 6.3(A) 4.0 - 5.6 % Capillary blood 09/17/2024 1 2:40 PM CDT Adam Agarwal MD POINT OF [...] Most Recently Relevant to Health Maintenance Insurance [facility] MEDICARE Care Teams Vehicle Body Sander Relationship Specialty Start Date End Date Joe Rai MD [facility] [place] [id number] PCP - General Family Medicine 07/22/23
--- OUTSIDE RECORDS SUMMARY | 2025-02-09 12:09 | XMS_ITS | Clinical Summary ---
Author Organization [facility] Address [address] [place] [id number] Care Team Providers Care Balance Staff Staker Name Role Phone Unavailable Primary Care Provider Unavailabl e Encounters Date Type Department Care Team Description 02/03/2025 External Device Data ST[facility] ABSTRACTION Provider, Abstract 02/02/2025 External Device Data [facility] ABSTRACTION Provider, Abstract 01/05/2025 External Device Data [facility] ABSTRACTION Provider, Abstract 12/29/2024 External Device Data ST[facility] ABSTRACTION Provider, Abstract from Last 3 Months Social History Tobacco Use Types Packs/Day Years Used Date Smoking Tobacco: Never Assessed Comments Unknown Sex and Gender Information Value Date Recorded Sex Assigned at Not on file Legal 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
[2025-02-09 12:42] LABS: MALB Creatinine Ratio 9.2 mg/g (0-30)
== END 2025-02-09 10:31 | disposition home or self-care (01) ==
PROVIDERS: Nurse Practitioner Family; PCP Family Medicine; Visit Provider Family Medicine
DX: E11.69 Type 2 diabetes mellitus with other specified complication (principal); E66.9 Obesity, unspecified; N63.20 Unspecified lump in the left breast, unspecified quadrant; R92.8 Other abnormal and inconclusive findings on diagnostic imaging of breast
CPT/HCPCS: 76641; 77061; 77065; 82043; G0279